=== PATIENT | female | born 1955 | race Caucasian/White ===

== ENCOUNTER 2023-11-20 12:08 | Outpatient (OUT) | payer MEDICARE, BC, SELFPAY ==
--- NOTE | 2023-11-20 12:54 | P.CN_ITS ---
Consult Note: HPI Data of Consult Patient: new to practice Consult date: 11/20/23 Requesting Physician: Megan Pappas MD Primary Care Provider: HELEN JEFFERY Consult Narrative Reason for consult: low back, bilateral lower extremity pain Narrative: 68yof who presents for evaluation. she has had 20+ years of low back and leg pain, now worsening over past several months. increasing weakness into bilateral lower extremities. underwent back surgery in 1998. no recent advanced imaging available for review. has completed physical therapy and chiropractic therapy >6 weeks in past 3 months, without lasting benefit. uses tylenol, does not like to take meds. denies adverse med side effects. cc:: CC: Megan Pappas MD Review of Systems ROS Status of ROS 10 or more systems reviewed and unremark able except as noted in history and below Exam Narrative Exam Narrative: Psych-alert and oriented x 3. Attentive and appropriate, constitutionally normal, displays normal mood and affect per situation. There are no obvious deficits in memory, reasoning, or intellect.? Skin-no obvious rashes, bruising, erythema noted to the patient's area of pain.? Extremities- extremities are warm with minimal edema and palpable pulses. Lumbar-tenderness to palpation noted in the lumbar spine and paraspinal musculature. Pain is elicited with flexion, extension, and lateral rotation of the lumbar spine. Range of motion is diminished with these motions. Facet loading maneuvers are positive.? Strength-noted to be unremarkable with the exception of decreased strength rated at 4 out of 5 in bilateral quadriceps femoris, anterior tibialis. Sensory-no notable sensory deficits in the bilateral lower extremities to touch or pinprick in all dermatomal distributions with the exception to decreased sensation to the bilateral L4, 5 dermatomal distribution Coordination remains intact.? Gait remains non-antalgic. Assessment and Plan Assessment and Plan (1) Lumbar stenosis with neurogenic claudication: (2) Lumbar postlaminectomy syndrome: Plan 68yof who presents for evaluation. failed conservative measures, as noted. given worsening symptoms and exam findings, prudent to obtain lumbar mri without contrast for further info. she is in agreement. meds reviewed, no changes. follow up after imaging.
== END 2023-11-20 12:09 | disposition home or self-care (01) ==
LOC: PM 12:10
PROVIDERS: PCP Internal Medicine; Visit Provider Anesthesiology
DX: M48.062 Spinal stenosis, lumbar region with neurogenic claudication (principal); M96.1 Postlaminectomy syndrome, not elsewhere classified
CPT/HCPCS: G0463

== ENCOUNTER 2023-11-21 09:18 | Outpatient (OUT) | payer MEDICARE, BC, SELFPAY ==
--- NOTE | 2023-11-21 09:21 | MR_ITS ---
[address] [address] Patient Name: AMARA AGUILAR MRN: [id number] date: 1955 Sex: F Assigned Patient Location: MRI Current Patient Location: MRI Accession/Order Number: [id number] Exam Date: 11/21/2023 09:39 Report Date: 11/21/2023 13:03 At the request of: CHELSIE LEMUS Procedure: MR lumbar spine wo con EXAMINATION: MR lumbar spine wo con HISTORY: Lumbar Stenosis COMPARISON: No relevant comparison available. TECHNIQUE: A variety of imaging planes and parameters were utilized for visualization of suspected pathology. FINDINGS: For the purposes of numbering, sagittal T2 image # 8 extends from the T11 vertebral body superiorly to the S3 level inferiorly. PARASPINAL AREA: Normal with no visible mass. BONES: Normal alignment with no acute fracture or spondylolisthesis. Mild degenerative spondylosis and facet osteophyte arthropathy. CORD/CAUDA EQUINA: Normal caliber, contour, and signal intensity. 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 L1-L2: No significant disc/facet abnormality, spinal stenosis, or foraminal stenosis. L2-L3: Disc space narrowing and desiccation. Mild posterior broad-based disc protrusion. No central canal or foraminal stenosis L3-L4: Disc space narrowing and disc desiccation. Mild posterior disc/osteophyte complex with ligamentum flavum hypertrophy and facet osteoarthropathy. Mild trefoil narrowing of the central canal. No foraminal stenosis. L4-L5: Moderate disc space narrowing and disc desiccation. Mild diffuse disc bulge with ligamentum flavum hypertrophy and facet osteoarthropathy. No central canal or foraminal stenosis L5-S1: Disc collapse with endplate sclerosis. Mild diffuse disc bulge with facet osteoarthropathy. No central or foraminal stenosis MR/MR lumbar spine wo con IMPRESSION: Degenerative changes without definitive central or foraminal stenosis Electronically authenticated by: MEGAN PEREZ Date: 11/21/2023 13:03
== END 2023-11-21 09:19 | disposition home or self-care (01) ==
LOC: MRI 09:18
PROVIDERS: PCP Internal Medicine; Visit Provider Anesthesiology
DX: M48.062 Spinal stenosis, lumbar region with neurogenic claudication (principal)
CPT/HCPCS: 72148

== ENCOUNTER 2023-11-23 12:19 | Outpatient (OUT) | payer BC, MEDICARE, SELFPAY ==
--- OUTSIDE RECORDS SUMMARY | 2023-11-23 12:37 | XMS_ITS | CCD ---
Author Organization [facility] Inform ion Partnership 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 Gladis Solorzano Primary Care U navailable Gladis Solorzano Admitting Unavailable Gladis Solorzano Attending Unavailable Quintero-Gladis Sofia Primary Care Unavailable Qu[place], Gladis Primary Care Unavailable CopRafaela murillo Admitting Unavailable Rafaela Lopez Attending Unavailable DO Gladis Solorzano Primary Care Provider DO Gladis Solorzano Attending Provider Gladis Solorzano DO Primary Care Provi mitchell CHELY JEFFERSON Attending Unavailable GLADIS SOLORZANO Primary Care Unava ilable GLADIS SOLORZANO Attending GLADIS Wade Referring GLADIS Wade Attending GLADIS Wade Referring Stanislav garcia Medications Current Medications Medication Drug Class(es) Dates Sig (Normalized) Sig (Original) [id number] 200 actuat albuterol 0.09 mg/actuat metered dose inhaler (8 sources) beta2-Adrenergic Agonist Start: 12-05-2022 Albuterol Sulfate Active 1 INH INHALATION Four times daily December 05, 2022 12:00am Start: 04-16-2021 take 1 puff(s) by in halation every four hours albuterol 90 mcg/actuation inhaler Inhale 1 puff every 4 hours if needed. 04/16/2021 Active Start: 04-16-2021 take 1 puff(s) by in halation every four hours as needed Albuterol Sulfate HFA 108 (90 Base) MCG/ACT Inhalation Aerosol Solution INHALE 1 PUFF EVERY 4 HOURS NEEDED. Quantity: 0 Refills: 0 Ordered: 16-Apr-2021 DO Start : 16-Apr-2021 Active ascorbic acid 500 mg oral capsule (1 source) Vitamin C take 1 capsule by mouth once daily ascorbic acid, vitamin C, 500 mg capsule Take 1 capsule by mouth once daily. Active atenolol 50 mg oral tablet (7 sources) beta-Adrenergic Kana Start: 08-10-2023 End: 08-09-2024 take 1 tablet by mouth once daily atenolol (Tenormin) 50 mg tablet Indications: Essential hypertension, benign Take 1 tablet (50 mg) by mouth once daily. 90 tablet 3 08/10/2023 08/09/2024 Active Start: 12-05-2022 take 50 mg by mouth once daily Atenolol Active 50 MG PO Daily December 05, 2022 12:00am Start: 03-01-2021 take 1 tablet by nyla th once daily Atenolol 50 MG Oral Tablet Take 1 tablet daily Quantity: 90 Refills: 3 Ordered: 14-Jul-2022 Chely Jefferson MD Start : 01-Mar-2021 Active citalopram 20 mg oral tablet (8 sources) Serotonin Reuptake Inhibitor Start: 04-16-2021 take 20 mg by mouth once daily Citalopram Active 20 MG PO Daily December 05, 2022 12:00am codeine phosphate 2 mg/ml / guaiFENesin 20 mg/ml oral solution (7 sources) Opioid Agonist Start: 12-28-2020 codeine-guaife nesi n (Robitussin-AC) 10-100 mg/5 mL syrup Take by mouth. 12/28/2020 Active Fluticasone-Umeclid in-Vilanter (8 sources) Anticholinergic, Corticosteroid, beta2-Adrenergic Agonist Start: 12-05-2022 Fluticasone-Umecli din-Vilanter (Trelegy Ellipta) 100-62.5-25 mcg blister with device Active 1 INH INHALATION Daily December 05, 2022 12:00am Start: 04-16-2021 take 1 puff(s) by inhalation once daily hamyybmdpkh-cvjwxhrmo-dgylneue (TRELEGY-ELLIPTA) 100-62.5-25 mcg blister with device Inhale 1 puff once daily. 04/16/2021 Active Start: 04-16-2021 Trelegy Ellipt a 100-62.5-25 MCG/INH AEPB Take as directed Quantity: 0 Refills: 0 Ordered: 16-Apr-2021 DO Start : 16-Apr-2021 Active hydroCHLOROthiazide 12.5 mg / lisinopril 10 mg oral tablet (7 sources) Thiazide Diuretic, Angiotensin Converting Enzyme Inhibitor Start: 08-10-2023 End: 08-09-2024 take 1 tablet by mouth once daily lisinopriL-hydrochlorothiazide 10-12.5 mg tablet Indications: Essential hypertension, benign Take 1 tablet by mouth once daily. 90 tablet 3 08/10/2023 08/09/2024 Active Start: 12-05-2022 take 1 tablet by nyla th once daily Lisinopril-Hydrochlorothiazide Active 1 TAB PO Daily December 05, 2022 12:00am Start: 03-01-2021 take 1 tablet by nyla th once daily Lisinopril-hydroCHLOROthiazide 10-12.5 M G Oral Tablet Take 1 tablet daily Quantity: 90 Refills: 3 Ordered: 14-Jul-2022 Chely Jefferson MD Start : 01-Mar-2021 Active Completed/Discontinued Medications Medication Drug Class(es) Dates Sig (Normalized) Sig (Original) cholecalciferol 0.025 mg oral tablet (8 sources) Vitamin D Start: 04-26-2021 End: 08-29-2023 take 1 tablet by mouth once daily cholecalciferol (Vitamin D-3) 25 MCG (1000 UT) tablet Take 1 tablet (1,000 Units) by mouth once daily. 04/26/2021 08/29/2023 Discontinued (Duplicate order) Start: 04-26-2021 Vitamin D-[address] 25 MCG (1000 UT) Oral Tablet take 5000 units daily Quantity: 90 Refills: 1 Ordered: 26-Apr-2021 Chely Jefferson MD Start : 26-Apr-2021 Active take 2 tablets by mo uth once daily cholecalciferol (Vitamin D-3) 25 MCG (1000 UT) tablet Take 2 tablets (50 mcg) by mouth once daily. Active Fish Oil CAPS (6 sources) Fish Oil CAPS Ta ke as directed Quantity: 0 Refills: 0 Ordered: 26-Apr-2021 DO Active Vitamin C CAPS (6 sources) Vitamin C CAPS T beth as directed Quantity: 0 Refills: 0 Ordered: 26-Apr-2021 DO Active Vitamin D3 TABS (6 sources) Vitamin D3 TABS TAKE DIRECTED. Quantity: 0 Refills: 0 Ordered: 26-Apr-2021 DO Active Problems Active Problems Problem Classification Problem Date Documented Da te Episodic/Chronic Cardiac dysrhythmias (9 sources) Palpitations; Translations: [Palpitations] Onset: 05-16-2023 05-16-2023 Episodic Chronic kidney disease (9 sources) Chronic kidney disease stage 3; Translations: [Chronic kidney disease, Stage III (moderate)] Onset: 04-05-2017 08-29-2023 Chronic Chronic kidney disease (7 sources) Chronic kidney disease; Translations: [Hypertensive chronic kidney disease w stg 1-4/unsp chr kdny] Onset: 04-05-2017 Chronic obstructive pulmonary disease and bronchiectasis (10 sources) Chronic obstructive lung disease; Translations: [Chronic airway obstruction, not elsewhere classified] Onset: 05-16-2023 08-29-2023 Chronic E Codes: Fall (1 source) Fall; Translations: [Unspecified fall, initial encounter] 12-19-2022 Episodic Essential hypertension (11 sources) Benign essential hypertension; Translations: [Benign essential hypertension] Onset: 05-16-2023 08-29-2023 Chronic Open wounds of extremities (1 source) Tear of skin; Translations: [Laceration without foreign body of left forearm, initial encounter] 12-19-2022 Episodic Other nutritional; endocrine; and metabolic disorders (2 sources) Obesity; Translations: [Obesity, unspecified] Chronic Other nutritional; endocrine; and metabolic disorders (6 sources) Overweight in adulthood with body mass index of 25 or more but less than 30; Translations: [Overweight] Onset: 08-29-2023 08-29-2023 Episodic Other nutritional; endocrine; and metabolic disorders (2 sources) Body mass index (BMI) 29.0-29.9, adult; Translations: [Body mass index (BMI) 29.0-29.9, adult] Onset: 08-29-2023 Episodic Screening and history of mental health and substance abuse codes (10 sources) Ex-smoker; Translations: [Personal history of tobacco use] Onset: 08-29-2023 08-29-2023 Episodic Comment on above: quit 2005; Unclassified (1 source) Encounter for screening mammogram for malignant neoplasm of breast; Translations: [Encounter for screening mammogram for malignant neoplasm of breast] Onset: 06-07-2023 Unclassified (1 source) Laceration without foreign body of left forearm, initial encounter; Translations: [Laceration without foreign body of left forearm, initial encounter] Onset: 12-19-2022 Past or Other Problems Problem Classification Problem Date Documented Da te Episodic/Chronic Other lower respiratory disease (6 sources) Difficulty breathing; Translations: [Other respiratory abnormalities] Resolved: 04-26-2021 Episodic Other screening for suspected conditions (not mental disorders or infectious disease) (8 sources) Decreased vitamin D; Translations: [Other abnormal blood chemistry] Onset: 07-21-2021 05-16-2023 Episodic Unclassified (1 source) Onset: 08-29-2023 08-29-2023 Results Test Name Value Interpretation Reference Range Facil ity MM screening mammo BI w/CADo n 06-07-2023 MM screening mammo BI w/CAD [facility] [place] [address] Mammography Report Signed Patient: Breanna Aguilar MR#: [id number] 75 : 1955 Acct:[id number] Age/Sex: 67 / F ADM Date: 06/07/23 Loc: [place] Room: Type: [facility] Attending Dr: Gladis Solorzano DO Copies to: Gladis Solorzano DO Ordering Provider: Gladis Solorzano DO Date of Service: 06/07/23 MM/MM screening mammo BI w/CAD: SCREENING CLINICAL DATA: Screening for malignancy. SCREENING MAMMOGRAM - FULL FIELD DIGITAL WITH TOMOSYNTHESIS AND CAD COMPARISON:Mammograms dating back to 2019 Tomosynthesis craniocaudal and mediolateral oblique views of both breasts were obtained using low- dose digital technique. This examination was reviewed with the aid of CAD. FINDINGS: The breast tissue is composed of scattered fibroglandular densities. There are no dominant masses, typically malignant calcifications or architectural distortion. There has been no significant interval change. MM/MM screening mammo BI w/CAD IMPRESSION: NO MAMMOGRAPHIC EVIDENCE OF MALIGNANCY. ROUTINE FOLLOW-UP IS RECOMMENDED IN ONE YEAR. RESULT CODE: 1 Negative DENSITY CODE: 2 (approximately 25-50% glandular) FOLLOW UP: 1YR The false-negative rate of mammography is approximately 10-percent. Management of a palpable abnormality must be based on clinical grounds. Patient was entered into a reminder system with a target due date for the next mammogram. Impression dictated by: Kyle Miranda Jr., D.OAngel06/07/2023 11:48 AM Dictation Location: [facility] Transcribed By: [facility] 06/07/23 1148 Dictated By: Kyle Miranda Jr, DO 06/07/23 1147 Signed By: 06/07/23 1148 [facility] Office Visit (Cardiology)on 08-24-2022 Follow-up visit Diagnoses/Problems Assessed Essential hypertension, benign (401.1) (I10) Chronic kidney disease, stage 3 (585.3) (N18.30) COPD (chronic obstructive pulmonary disease) (496) (J44.9) Class 1 obesity with body mass index (BMI) of 30.0 to 30.9 in adult (278.00,V85.30) (E66.9,Z68.30) Former smoker (V15.82) (Z87.891) quit 2005 Orders Class 1 obesity with body mass index (BMI) of 30.0 to 30.9 in adult Healthy Weight Tips; Status:Complete - Retrospective Authorization; Done: 24Aug2022 Some eating tips that can help you lose weight.; Status:Complete - Retrospective Authorization; Done: 24Aug2022 SocHx: Former smoker Tobacco Use Screening; Status:Complete; Done: 24Aug2022 Patient Instructions Please bring all medicines, vitamins, and herbal supplements with you when you come to the office. Prescriptions will not be filled unless you are compliant with your follow up appointments or have a follow up appointment scheduled as per instruction of your physician. Refills should be requested at the time of your visit. Follow up in 1 year. Same meds Declined pneumo vac. Chief Complaint BREANNA AGUILAR is being seen for an annual follow-up of. Patient is in the office for annual follow-up for the problems noted below. Since her last visit she gained 11 pounds due to inactivity. She does have COPD from previous tobacco abuse and that examination today demonstrated significantly diminished breath sounds. She has no cough no lower extremity edema no chest pain. She feels tired due to inactivity. Since she started taking vitamin D3 5000 unit daily her vitamin D level went up to the mid 50s. She saw her PCP couple months ago and she sees her twice yearly. Lab data from recent testing were sent to me, I reviewed and discussed with the patient. She continues to have stage IIIa chronic kidney disease. Her pressures in the upper normal range but she is on medical therapy as noted that generally speaking has been effective. ASSESSMENT AND PLAN: 1. Hypertension, under control, currently on lisinopril/hydrochlor othiazide and atenolol, with no changes necessary. 2. Stage III chronic kidney disease, nonprogressive. 3. Obesity. Encouraged the patient to drop her weight further with diet and exercise. Daily exercise and reduce calorie consumption was advocated. 4. Previous stress test and echocardiogram 2006 were normal there is no reason to repeat these tests at the present time 5. COPD due to previous tobacco abuse. Currently asymptomatic She will follow up with me in the office on annual basis. Chely Jefferson MD, [facility] Surgical History Problems History of Back surgery History of Cataract surgery History of section History of Complete colonoscopy History of Tooth extraction History of Tubal ligation Past Medical History Problems History of Difficulty breathing (786.09) (R06.89) Resolved Date: 26 Apr 2021 Current Meds Medication NameInstruction Albuterol Sulfate HFA 108 (90 Base) MCG/ACT Inhalation Aerosol SolutionINHALE 1 PUFF EVERY 4 HOURS NEEDED. Atenolol 50 MG Oral TabletTake 1 tablet daily Citalopram Hydrobromide 20 MG Oral TabletTAKE 1 TABLET DAILY DIRECTED. Fish Oil CAPSTake as directed guaiFENesin-Codeine 100-10 MG/5ML Oral SolutionTake as directed Lisinopril-hydroCHLOR Othiazide 10-12.5 MG Oral TabletTake 1 tablet daily Trelegy Ellipta 100-62.5-25 MCG/INH AEPBTake as directed Vitamin C CAPSTake as directed Vitamin D-[address] 25 MCG (1000 UT) Oral Tablettake 5000 units daily Vitamin D3 TABSTAKE DIRECTED. Patient did not bring medication list or bottles. Updated verbally with patient Allergies Medication No Known Drug Allergies Recorded By: Chelita Del Rio; 03/02/2021 9:19:19 AM Social History Problems Alcohol use (V49.89) (Z78.9) Caffeine use (V49.89) (Z78.9) 4 cups of coffee daily. Former smoker (V15.82) (Z87.891) quit 2005 No illicit drug use Review of Systems Constitutional: not feeling tired. Cardiovascular: palpitations, but no intermittent leg claudication and as noted in HPI. Respiratory: shortness of breath, but no cough. Gastrointestinal: no change in bowel habits and no blood in stools. Integumentary: no skin rashes. Neurological: no seizures and no frequent falls. All other systems have been reviewed and are negative for complaint. Vitals Vital Signs Recorded: [id number] 08:39AMRecorded: [id number] 08:28AM [id number], LUE, Sitting [id number], LUE, Sitting Heart Rate60, L Radial Height5 ft 6 in Udmzqy267 lb BMI Cbkzrgeqry10.34 kg/m2 BSA Calculated1.95 Tobacco Useb) No PHQ-2 #1. Over the last 2 weeks have you felt down, depressed or hopeless? (If yes, answer PHQ-9 below)No PHQ-2 #2. Over the last 2 weeks have you felt little interest or pleasure in doing things? (If yes, answer PHQ-9 below)No Falls Screening (Age 18+)a) No falls within the last year Physical Exam Constitutional: alert and in no acute dis (more content not included)... Normal [employer] Tobacco Screening.on 023 Adult depression screening assessment No [facility] [employer] DO Work Phone: Fall risk assessment a) No falls within the last year [facility] [employer] DO Work Phone: Tobacco use status [facility] b) No [facility] [employer] DO Work Phone: VITAMIN D 25 OHon 07-16-2021 VIT D 25-OH 50.6 ng/mL Normal [facility] Comment on above: Performed By: #### V ITAD #### [facility] [address] [place] [address] Dr. Oralia Valdes VIT D RANGES SEE BELOW Normal [facility] Comment on above: Result Comment: <20 ng/mL Vit D deficient 20 - <30 ng/mL Vit D insufficient 30 - 100 ng/mL Vit D sufficient >100 ng/mL Potential Toxicity Performed By: #### V ITAD #### [facility] [address] [place] [address] Dr. Oralia Valdes Tobacco Screening.on 022 Fall risk assessment a) No falls within the last year [facility] [employer] DO Work Phone: Tobacco use status [facility] b) No [facility] [employer] DO Work Phone: Complete Blood Counton 04-06 Erythrocyte distribution width (RBC) [Ratio] 13.0 % Normal 11.0-15.0 [facility] [employer] License Inspector Comment on above: Performed By: #### L IPD, VITD, TSH reflex FT4, CBC, CMP #### [facility] [address] [place], [place] [id number] Hematocrit (Bld) [Volume fraction] 37.8 % Normal 35.0-47.0 [facility] [employer] License Inspector Comment on above: Performed By: #### L IPD, VITD, TSH reflex FT4, CBC, CMP #### [facility] [address], [place] [id number] Hemoglobin (Bld) [Mass/Vol] 12.2 g/dL Normal 11.6-15.5 [facility] Specialist Comment on above: Performed By: #### L IPD, VITD, TSH reflex FT4, CBC, CMP #### [facility] [address], [place] [id number] MCH (RBC) [Entitic mass] 31.1 pg Normal 27.0-33.0 [facility] Specialist Comment on above: Performed By: #### L IPD, VITD, TSH reflex FT4, CBC, CMP #### [facility] [address], [place] [id number] MCHC (RBC) [Mass/Vol] 32.3 g/dL Normal 32.0-36.0 [facility] Specialist Comment on above: Performed By: #### L IPD, VITD, TSH reflex FT4, CBC, CMP #### [facility] [address], [place] [id number] MCV (RBC) [Entitic vol] 96 fL Normal 80-100 [facility] Chief Dog License Inspector Comment on above: Performed By: #### L IPD, VITD, TSH reflex FT4, CBC, CMP #### [facility] [address], [place] [id number] Platelet mean volume (Bld) [Entitic vol] 10.20 fL Normal 7.50-12.50 [facility] Chief Dog License Inspector Comment on above: Performed By: #### L IPD, VITD, TSH reflex FT4, CBC, CMP #### [facility] [address], [place] [id number] Platelets (Bld) [#/Vol] 260 10*3/uL Normal 140-400 [facility] Chief Dog License Inspector Comment on above: Performed By: #### L IPD, VITD, TSH reflex FT4, CBC, CMP #### [facility] [address], [place] [id number] RBC (Bld) [#/Vol] 3.92 10*6/uL Normal 3.90-5.20 [facility] Specialist Comment on above: Performed By: #### L IPD, VITD, TSH reflex FT4, CBC, CMP #### [facility] [address], [place] [id number] RDW-SD 45.7 fL Normal 37.0-50.0 [facility] Chief Dog License Inspector Comment on above: Performed By: #### L IPD, VITD, TSH reflex FT4, CBC, CMP #### [facility] [address], [place] [id number] WBC (Bld) [#/Vol] 7.3 10*3/uL Normal 3.8-11.0 [facility] [place] Chief Dog License Inspector Comment on above: Performed By: #### L IPD, VITD, TSH reflex FT4, CBC, CMP #### [facility] [address], [place] [id number] Comprehensive Metabolic Pane [facility] 04-06-2021 Albumin [Mass/Vol] 4.3 g/dL Normal 3.6-5.1 [facility] [place] Chief Dog License Inspector Comment on above: Performed By: #### L IPD, VITD, TSH reflex FT4, CBC, CMP #### [facility] [address], [place] [id number] Albumin/Globulin [Mass ratio] 1.4 {ratio} Normal 1.0-2.5 [facility] Chief Dog License Inspector Comment on above: Performed By: #### L IPD, VITD, TSH reflex FT4, CBC, CMP #### [facility] [address], [place] [id number] ALP [Catalytic activity/Vol] 72 U/L Normal 35-119 [facility] Chief Dog License Inspector Comment on above: Performed By: #### L IPD, VITD, TSH reflex FT4, CBC, CMP #### [facility] [address], [place] [id number] ALT [Catalytic activity/Vol] 16 U/L Normal 6-33 [facility] Chief Dog License Inspector Comment on above: Result Comment: 02/24 Female reference range changed. Performed By: #### L IPD, VITD, TSH reflex FT4, CBC, CMP #### [facility] [address], [place] [id number] Anion gap [Moles/Vol] 17 mmol/L Normal 12-20 [facility] Chief Dog License Inspector Comment on above: Result Comment: [place] ctive 04/01/2019 reference range changed. Performed By: #### L IPD, VITD, TSH reflex FT4, CBC, CMP #### [facility] [address], [place] [id number] AST [Catalytic activity/Vol] 20 U/L Normal 9-34 [facility] Specialist Comment on above: Performed By: #### L IPD, VITD, TSH reflex FT4, CBC, CMP #### [facility] [address], [place] [id number] Bilirubin [Mass/Vol] 0.33 mg/dL Normal 0.30-1.20 [facility] Specialist Comment on above: Performed By: #### L IPD, VITD, TSH reflex FT4, CBC, CMP #### [facility] [address], [place] [id number] BUN/CREA 17 Ratio Normal 6-22 [facility] Specialist Comment on above: Performed By: #### L IPD, VITD, TSH reflex FT4, CBC, CMP #### [facility] [address], [place] [id number] Calcium [Mass/Vol] 9.3 mg/dL Normal 8.6-10.2 [facility] Comment on above: Performed By: #### L IPD, VITD, TSH reflex FT4, CBC, CMP #### [facility] [address], [place] [id number] Chloride [Moles/Vol] 104 mmol/L Normal 98-107 [facility] Specialist Comment on above: Performed By: #### L IPD, VITD, TSH reflex FT4, CBC, CMP #### [facility] [address], [place] [id number] CO2 [Moles/Vol] 24 mmol/L Normal 20-31 [facility] Specialist Comment on above: Performed By: #### L IPD, VITD, TSH reflex FT4, CBC, CMP #### [facility] [address], [place] [id number] Creatinine [Mass/Vol] 1.1 mg/dL Normal 0.6-1.4 [facility] Specialist Comment on above: Performed By: #### L IPD, VITD, TSH reflex FT4, CBC, CMP #### [facility] [address], [place] [id number] eGFRAA 60 mL/min/1.73m2 Low >60 [facility] Chief Dog License Inspector Comment on above: Performed By: #### L IPD, VITD, TSH reflex FT4, CBC, CMP #### [facility] [address], [place] [id number] eGFRNAA 50 mL/min/1.73m2 Low >60 [facility] Chief Dog License Inspector Comment on above: Performed By: #### L IPD, VITD, TSH reflex FT4, CBC, CMP #### [facility] [address], [place] [id number] Globulin (S) [Mass/Vol] 3.0 g/dL Normal 1.9-3.7 [facility] Chief Dog License Inspector Comment on above: Performed By: #### L IPD, VITD, TSH reflex FT4, CBC, CMP #### [facility] [address], [place] [id number] Glucose [Mass/Vol] 94 mg/dL Normal 65-99 [facility] Chief Dog License Inspector Comment on above: Result Comment: For FASTING Glucose --- ADA reference ranges: Normal 65-99 mg/dl Prediabetes 100-125 Diabetes >/= 126 Performed By: #### L IPD, VITD, TSH reflex FT4, CBC, CMP #### [facility] [address], [place] [id number] Potassium [Moles/Vol] 4.5 mmol/L Normal 3.5-5.5 [facility] Chief Dog License Inspector Comment on above: Performed By: #### L IPD, VITD, TSH reflex FT4, CBC, CMP #### [facility] [address], [place] [id number] Protein [Mass/Vol] 7.3 g/dL Normal 6.1-8.1 [facility] [place] Chief Dog License Inspector Comment on above: Performed By: #### L IPD, VITD, TSH reflex FT4, CBC, CMP #### [facility] [address], [place] [id number] Sodium [Moles/Vol] 140 mmol/L Normal 135-146 [facility] ty [place] Chief Dog License Inspector Comment on above: Performed By: #### L IPD, VITD, TSH reflex FT4, CBC, CMP #### [facility] [address], [place] [id number] Urea nitrogen [Mass/Vol] 18 mg/dL Normal 7-25 [facility] Specialist Comment on above: Performed By: #### L IPD, VITD, TSH reflex FT4, CBC, CMP #### [facility] [address], [place] [id number] Lipid Panelon 04-06-2021 Cholesterol [Mass/Vol] 236 mg/dL High 125-200 [facility] Chief Dog License Inspector Comment on above: Order Comment: FASTI NG-But DO drink water prior to going to the lab Result Comment: Low risk < 200mg/dL Borderline risk 201-239 mg/dl High risk > or equal to 240 Performed By: #### L IPD, VITD, TSH reflex FT4, CBC, CMP #### [facility] [address], [place] [id number] Cholesterol in HDL [Mass/Vol] 71 mg/dL Normal >40 [facility] Chief Dog License Inspector Comment on above: Order Comment: FASTI NG-But DO drink water prior to going to the lab Result Comment: High Cardiovascular Risk HDL <40 mg/dL Low Cardiovascular Risk HDL > or equal to 60 mg/dl Performed By: #### L IPD, VITD, TSH reflex FT4, CBC, CMP #### [facility] [address], [place] [id number] Cholesterol in LDL [Mass/Vol] 140 mg/dL Normal [facility] Specialist Comment on above: Order Comment: FASTI NG-But DO drink water prior to going to the lab Result Comment: LDL ATP III CLASSIFICATION LDL less than 100 mg/dl Optimal LDL 100-129 mg/dl Near or above optimal LDL 130-159 Borderline high LDL 160-189 High LDL greater than 189 mg/dl Very High Performed By: #### L IPD, VITD, TSH reflex FT4, CBC, CMP #### [facility] [address], [place] [id number] Cholesterol in VLDL [Mass/Vol] 25 mg/dL Normal [facility] Specialist Comment on above: Order Comment: FASTI NG-But DO drink water prior to going to the lab Performed By: #### L IPD, VITD, TSH reflex FT4, CBC, CMP #### [facility] [address], [place] [id number] Cholesterol.total/C holesterol in HDL [Mass ratio] 3 {ratio} Normal [facility] Comment on above: Order Comment: FASTI NG-But DO drink water prior to going to the lab Performed By: #### L IPD, VITD, TSH reflex FT4, CBC, CMP #### [facility] [address], [place] [id number] Triglyceride [Mass/Vol] 123 mg/dL Normal 30-150 [facility] Specialist Comment on above: Order Comment: FASTI NG-But DO drink water prior to going to the lab Result Comment: TRIG ATPIII CLASSIFICATIONS TRIG less than 150 mg/dl Normal TRIG 150-199 mg/dl Borderline High TRIG 200-500 mg/dl High TRIG greather than 500 mg/dl Very High Performed By: #### L IPD, VITD, TSH reflex FT4, CBC, CMP #### [facility] [address], [place] [id number] Microalbumin (with Creat)on 04-06-2021 mALB 8.3 mg/dL Normal [facility] Comment on above: Result Comment: mALB reference range not established. Performed By: #### m ALBC #### [facility] [address], [place] [id number] mALB/Creat Ratio 107.8 MCG/MG Normal [facility] Comment on above: Result Comment: The ADA (Diabetes Care 26:S94-S98, 2003) defines abnormalities in Albumin excretion as follows: Category Result (MCG/MG Creatinine) Normal <30 Microalbuminuria 30-299 Clinical Albuminuria > or = 300 Performed By: #### m ALBC #### [facility] [address], [place] [id number] UCREA 77 mg/dL Normal 28-217 [facility] Specialist Comment on above: Performed By: #### m ALBC #### [facility] [address], [place] [id number] TSH w/ Reflex to Free T4on 0 04-06-2021 TSH 1.750 uIU/mL Normal 0.400-4.500 [facility] Chief Dog License Inspector Comment on above: Performed By: #### L IPD, VITD, TSH reflex FT4, CBC, CMP #### [facility] [address], [place] [id number] Vitamin B12on 04-06-2021 Cobalamin (Vitamin B12) [Mass/Vol] 811 pg/mL Normal 211-946 [facility] Chief Dog License Inspector Comment on above: Performed By: #### B 12 #### [facility] [address], [place] [id number] Vitamin D 25-OHon 04-06-2021 VIT D 25 OH 26 ng/ml Low >29 [facility] Chief Dog License Inspector Comment on above: Result Comment: Amada min D Status Deficiency <20 ng/mL Insufficiency 20-29 ng/mL Optimal 30-100 ng/mL Possible Toxicity >=150 ng/mL Performed By: #### L IPD, VITD, TSH reflex FT4, CBC, CMP #### [facility] [address], [place] [id number] Outside Records Officeon Outside Records Office [id number]# 1.00CD:127 Normal [facility] Referrals Officeon Referrals Office [id number]# 1.00CD:127 Normal [facility] Creatinineon 04-05-2017 Creatinine 1.27 mg/dL High 0.50-1.05 [facility] Comment on above: Performed By: #### 1 [id number] ####[facility] [address] [place] [address] eGFR (MDRD) 43 mL/min/{1.73_m2} Normal [facility] Comment on above: Result Comment: Inte rpretation for Chronic Kidney Disease:Stages 1&2 >60 Healthy or potential kidney damage.Mild decrease of GFR.Stage 3 30-59 Moderate decrease of GFR.Stage 4 15-29 Severe decrease of GFR.Stage 5 <15 Kidney failure or on dialysis. Performed By: #### 1 [id number] ####[facility] [address] [place] [address] Electrolyte Panelon 01-10-20 18 Anion gap 11 mmol/L Normal 10-20 [facility] Healthcare Comment on above: Performed By: #### 1 [id number] ####[facility] [address] [place] [address] Bicarbonate (HCO3) 30 mmol/L Normal 21-32 [facility] He althcare Comment on above: Performed By: #### 1 [id number] ####[facility] [address] [place] [address] Chloride 101 mmol/L Normal 98-107 [facility] Healthcare Comment on above: Performed By: #### 1 [id number] ####[facility] [address] [place] [address] Potassium molar conc 4.4 mmol/L Normal 3.5-5.1 [facility] Comment on above: Performed By: #### 1 [id number] ####[facility] [address] [facility] [address] Sodium 138 mmol/L Normal 136-145 [facility] Comment on above: Performed By: #### 1 [id number] ####[facility] [address] [place] [address] Urea Nitrogenon 04-05-2017 Urea nitrogen 20 mg/dL Normal 6-23 [facility] are Comment on above: Performed By: #### 1 [id number] ####[facility] [address] [facility] [address] Vital Signs Date Time Vital Sign Value Performing Clinician Keshiai joel 08-29-2023 12:55-0400 Body height 167.6 cm Chely Jefferson MD Work Phone: [facility] 08-29-2023 12:55-0400 Body mass index (BMI) [Ratio] 29.86 kg/m2 Chely Jefferson MD Work Phone: [facility] 08-29-2023 12:55-040 Body weight 83.92 kg Chely Jefferson MD Work Phone: [facility] 08-29-2023 12:55-0400 Diastolic blood pressure 68 mm[Hg] Chely Jefferson MD Work Phone: [facility] 08-29-2023 12:55-0400 Heart rate 56 /min Chely Jefferson MD Work Phone: [facility] 08-29-2023 12:55-0400 Systolic blood pressure 118 mm[Hg] Chely Jefferson MD Work Phone: [facility] 08-24-2022 08:39-0400 Diastolic blood pressure 80 mm[Hg] Gladis Lerma Quintero-[place] Work Phone: [facility] [address] DO Work Phone: 08-24-2022 08:39-0400 Systolic blood pressure 136 mm[Hg] Gladis Florentin [place] Work Phone: [facility] [address] DO Work Phone: 08-24-2022 08:28-0400 Body height 167.64 cm Gladis Florentin [place] Work Phone: [facility] [address] DO Work Phone: 08-24-2022 08:28-0400 Body mass index (BMI) [Ratio] 30.34 kg/m2 Gladis Florentin [place] Work Phone: [facility] [address] DO Work Phone: 08-24-2022 08:28-0400 Body surface area Derived from formula 1.95 m2 Gladis Florentin [place] Work Phone: [facility] [address] DO Work Phone: 08-24-2022 08:28-0400 Body weight 85.28 kg Gladis Florentin [place] Work Phone: [facility] [address] DO Work Phone: 08-24-2022 08:28-0400 Diastolic blood pressure 78 mm[Hg] Gladis Lerma [place] Work Phone: [facility] [address] DO Work Phone: 08-24-2022 08:28-0400 Heart rate 60 /min Gladis Florentin [place] Work Phone: [facility] [address] DO Work Phone: 08-24-2022 08:28-0400 Systolic blood pressure 146 mm[Hg] Gladis Florentin [place] Work Phone: [facility] [address] DO Work Phone: 04-26-2021 14:04-0500 Body height 167.64 cm Gladis Florentin [place] Work Phone: [facility] [address] DO Work Phone: 04-26-2021 14:04-0500 Body mass index (BMI) [Ratio] 28.65 kg/m2 Gladis Florentin [place] Work Phone: [facility] [address] DO Work Phone: 04-26-2021 14:04-0500 Body surface area Derived from formula 1.9 m2 Gladis D Qu[place] Work Phone: [facility] [address] DO Work Phone: 04-26-2021 14:04-0500 Body weight 80.51 kg Gladis Florentin [place] Work Phone: [facility] [address] DO Work Phone: 04-26-2021 14:04-0500 Diastolic blood pressure 63 mm[Hg] Gladis Florentin [place] Work Phone: [facility] [address] DO Work Phone: 04-26-2021 14:04-0500 Heart rate 66 /min Gladis Florentin [place] Work Phone: [facility] [address] DO Work Phone: 04-26-2021 14:04-0500 Systolic blood pressure 117 mm[Hg] Gladis D Quintero[place] Work Phone: [facility] [address] DO Work Phone: Encounters Encounter Date Encounter Type Care Provider Facility Start: 11-07-2023 End: 11-07-2023 ambulatory GLADIS D QUINTERO-EMERY Not Available Start: 08-29-2023 End: 08-29-2023 Office outpatient visit 25 minutes Chely Jefferson MD Work Phone: [facility] Comment on above: Essential hypertensi on, benign; Stage 3 chronic kidney disease, unspecified whether stage 3a or 3b CKD (Multi); Chronic obstructive pulmonary disease, unspecified COPD type ([facility]); BMI 29.0-29.9,adult; Former smoker Start: 08-29-2023 End: 08-29-2023 ambulatory CHELY Carcamo [facility] Ambulatory Start: 06-07-2023 End: 06-07-2023 ambulatory Gladis Quintero[place] Facility:[facility] Start: 06-07-2023 End: 06-07-2023 ambulatory DO Gladis Quintero[place] Work Phone: [facility] Work Phone: Start: 06-07-2023 End: 06-07-2023 Patient encounter procedure DO Gladis Quintero[place] Work Phone: [facility] Work Phone: Start: 05-09-2023 End: 05-09-2023 ambulatory GLADIS D QUINTERO-EMERY Not Available Start: 12-19-2022 End: 12-20-2022 ambulatory Gladis Quintero[place] Facility:[facility] Start: 08-24-2022 Office outpatient vi sit 25 minutes Gladis D Quintero[place] Work Phone: [facility] [address] DO Work Phone: Start: 08-24-2022 ambulatory Chely Jefferson Facility : Start: 07-14-2022 Rx Renewal Gladis D Weave r-[place] Work Phone: [facility] [address] DO Work Phone: Start: 05-23-2022 End: 05-23-2022 ambulatory DO Gladis Quintero[place] Work Phone: [facility] Work Phone: Start: 05-23-2022 End: 05-23-2022 Patient encounter procedure DO Gladis Quintero[place] Work Phone: [facility] Work Phone: Start: 04-14-2022 Rx Renewal Gladis D We[place] Work Phone: [facility] [address] DO Work Phone: Start: 12-22-2021 End: 12-22-2021 ambulatory DO Gladis Quintero[place] Work Phone: [facility] Work Phone: Start: 12-22-2021 End: 12-22-2021 Patient encounter procedure DO Gladis Quintero[place] Work Phone: [facility] Start: 07-21-2021 Encounter for genera l adult medical examination without abnormal findings DR CHELY JEFFERSON [facility] Start: 07-16-2021 End: 07-17-[address] CHELY JEFFERSON Facility:[facility] Start: 07-16-2021 End: 07-17-2021 Encounter for general adult medical examination without abnormal findings DR CHELY JEFFERSON Facility:[facility] Start: 04-26-2021 Office outpatient vi sit 25 minutes Gladis D Quintero[place] Work Phone: [facility] [address] DO Work Phone: Start: 03-01-2021 Rx Renewal Chely Jefferson MD Work Phone: [facility] [address] DO Work Phone: Start: 04-05-2017 Ambulatory CHELY JEFFERSON Facility :[id number] Procedures Date Procedure Procedure Detail Performing Clinician Start: 06-07-2023 End: 06-07-2023 Screening mammography of bilateral breasts DO Gladis Quintero[place] Work Phone: Start: 05-23-2022 Screening mammograph y of bilateral breasts DO Gladis Quintero[place] Work Phone: Start: 12-22-2021 Radionuclide three-p hase bone study DO Gladis Quintero[place] Work Phone: Cataract surgery Gladis D We aver[place] Work Phone: section Gladis D We [place] Work Phone: Ligation of fallopian tube S kylie D Quintero[place] Work Phone: Procedure on back Gladis D W e[place] Work Phone: Tooth extraction Gladis D We aver[place] Work Phone: Total colonoscopy Gladis D W [place] Work Phone: Plan of Treatment Date Care Activity Detail Author Start: 08-27-2024 End: 08-27-2024 Patient encounter procedure 08/27/2024 10:00 AM EDT Office Visit [facility] [address] [place] [address] Chely Jefferson MD [address] [place] [address] [facility] Start: 06-06-2024 Screening for malignant neoplasm of breast Mammogram [facility] Start: 11-26-2023 Influenza vaccination Influenza Vaccine (Season Ended) [facility] Start: 08-29-2023 FUV, Provider: Chely Jefferson, Status: Pen, Time: 8:30 AM FUV, Provider: Chely Jefferson, Status: Pen, Time: 8:[address] [facility] [address] DO Work Phone: Start: 12-01-2022 DTaP/Tdap/Td Vaccines (1 - Tdap) DTaP/Tdap/Td Vaccines (1 - Tdap) [facility] Start: 11-25-2022 COVID-19 Vaccine ( season) COVID-19 Vaccine ( season) [facility] Start: 08-24-2022 FUV, Provider: Chely Jefferson, Status: Pen, Time: 8:30 AM FUV, Provider: Chely Jefferson, Status: Pen, Time: 8:[address] [facility] 600 DO Work Phone: Start: 04-27-2022 FUV, Provider: Chely Jefferson, Status: Pen, Time: 8:30 AM FUV, Provider: Chely Jefferson, Status: Pen, Time: 8:[address] [facility] DO Work Phone: Start: 03-31-2021 FUV, Provider: Chely Jefferson, Status: Pen, Time: 8:30 AM FUV, Provider: Chely Jefferson, Status: Pen, Time: 8:[address] [facility] DO Work Phone: Start: 2015 RSV patients and/or patients aged 60+ years (1 - 1-dose 60+ series) RSV patients and/or patients aged 60+ years (1 - 1-dose 60+ series) [facility] Start: 09-02-2005 Zoster Vaccines (1 of 2) Zoster Vaccines (1 of 2) [facility] Start: 09-02-1973 Diabetes mellitus screening Diabetes Screening [facility] Start: 09-02-1973 Hepatitis C screening Hepatitis C Screening [facility] Start: 09-02-1961 Pneumococcal Vaccine: 65+ Years (1 of 2 - PCV) Pneumococcal Vaccine: 65+ Years (1 of 2 - PCV) [facility] Start: 1955 Lipid panel Lipid Panel [facility] Start: 1955 Screening for malignant neoplasm of colon [facility] Start: 1955 Screening for osteoporosis Bone Density Scan [facility] Start: 1955 Yearly Adult Physical Yearly Adult Physical [facility] Payers Date Payer Category Payer Unknown 2023 Unknown [id number] 2023 Medicare MEDICARE MEDICAR E PART A AND B [id number] 2023-Present [address] [place] [address] [id number] 2023 Medicare [id number] 2022 Self-pay [id number] 2021 Unknown [id number] 1959 Unknown [id number] 1955 Unknown [id number] 1955 Unknown [id number] 1955 Unknown [id number] 1955 Unknown [id number] 1955 Unknown [id number] Private Health Insurance [facility] [id number] Unknown [id number] Unknown [id number] Unknown [id number] Social History Date Type Detail Facility Start: 08-29-2023 Alcohol use Alcohol use [facility] [address] DO Work Phone: Comment on above: 4 cups of coffee bianca ly.; quit 2005; Start: 1955 Sex Assigned At Female F [facility] Start: 12-19-2022 End: 05-16-2023 Tobacco smoking status NHIS Ex-smoker (finding) [facility] History of tobacco use Current smoker [facility] Work Phone: History of tobacco use Cigarette Smoker [facility] Work Phone: Start: 08-29-2023 Alcoholic beverage intake Current drinker of alcohol (finding) [facility] Work Phone: Start: 08-29-2023 Tobacco use panel [facility] Work Phone: Start: 08-29-2023 Alcohol Comment rarely [facility] Work Phone: Start: 1955 Sex assigned at Not on file [facility] Work Phone: Start: 08-19-2023 End: 08-29-2023 Exposure to SARS-CoV-2 (event) Not sure [facility] History of Present illness Narrative 08-29-2023 Chely Jefferson MD - 08/29/2023 1:00 PM EDT Note Date & Type Note Facility 08-29-2023 History of Present illness Narrative Subjective Breanna Aguilar is a 67 y.o. female Chief Complaint Annual Exam HPI Patient is in the office for follow-up for the problems noted below. Since her last visit a year ago she has had no cardiac events. She has COPD from previous tobacco use which has been under control and uses inhalers on as-needed basis. Does not seem to interfere with her daily living. Her pressure is under control. She sees her PCP Dr. Quintero twice yearly. Her last blood work in March 2023 was reviewed and shared with her and there was no concern noted. She has diminished breath sounds in her lung examinations and has overweight otherwise physical examination was unremarkable. ASSESSMENT AND PLAN: 1. Essential hypertension, under control, currently on lisinopril/hydrochlorothiazide and atenolol, with no changes necessary. 2. Stage III chronic kidney disease, nonprogressive. 3. Overweight . Encouraged the patient to drop her weight further with diet and exercise. Daily exercise and reduce calorie consumption was advocated. 4. Previous stress test and echocardiogram 2006 were normal there is no reason to repeat these tests at the present time 5. COPD due to previous tobacco abuse. Currently asymptomatic She will follow up with me in the office on annual basis. Chely Jefferson MD, [facility] Review of Systems Cardiovascular: Positive for palpitations. All other systems reviewed and are negative. Vitals: 08/29/23 1255 BP: 118/68 BP Location: Left arm Patient Position: Sitting Pulse: 56 Weight: 83.9 kg (185 lb) Height: 1.676 m (5' 6 ) Objective Physical Exam Constitutional: Appearance: Normal appearance. HENT: Nose: Nose normal. Neck: Vascular: No carotid bruit. Cardiovascular: Rate and Rhythm: Normal rate. Pulses: Normal pulses. Heart sounds: Normal heart sounds. Pulmonary: Effort: Pulmonary effort is normal. Comments: Diminished breath sounds Abdominal: General: Bowel sounds are normal. Palpations: Abdomen is soft. Musculoskeletal: General: Normal range of motion. Cervical back: Normal range of motion. Right lower leg: No edema. Left lower leg: No edema. Skin: General: Skin is warm and dry. Neurological: General: No focal deficit present. Mental Status: She is alert. Psychiatric: Mood and Affect: Mood normal. Behavior: Behavior normal. Thought Content: Thought content normal. Judgment: Judgment normal. Allergies Patient has no known allergies. Current Medications Current Outpatient Medications: albuterol 90 mcg/actuation inhaler, Inhale 1 puff every 4 hours if needed., Disp: , Rfl: ascorbic acid, vitamin C, 500 mg capsule, Take 1 capsule by mouth once daily., Disp: , Rfl: atenolol (Tenormin) 50 mg tablet, Take 1 tablet (50 mg) by mouth once daily., Disp: 90 tablet, Rfl: 3 cholecalciferol (Vitamin D-3) 25 MCG (1000 UT) tablet, Take 2 tablets (50 mcg) by mouth once daily., Disp: , Rfl: citalopram (CeleXA) 20 mg tablet, Take 1 tablet (20 mg) by mouth once daily., Disp: , Rfl: codeine-guaifenesin (Robitussin-AC) 10-100 mg/5 mL syrup, Take by mouth., Disp: , Rfl: qtkyjpsbhvg-rzaqrqrhk-zrzdognx (TRELEGY-ELLIPTA) 100-62.5-25 mcg blister with device, Inhale 1 puff once daily., Disp: , Rfl: lisinopriL-hydrochlorothiazide 10-12.5 mg tablet, Take 1 tablet by mouth once daily., Disp: 90 tablet, Rfl: 3 Assessment/Plan 1. Essential hypertension, benign 2. Palpitations 3. Stage 3 chronic kidney disease, unspecified whether stage 3a or 3b CKD (Multi) 4. Chronic obstructive pulmonary disease, unspecified COPD type (Multi) 5. BMI 29.0-29.9,adult 6. Former smoker Scribe Attestation By signing my name below, I, Qamar Santos LPN attest that this documentation has been prepared under the direction and in the presence of Chely Jefferson MD. Provider Attestation - Scribe documentation All medical record entries made by the Scribe were at my direction and personally dictated by me. I have reviewed the chart and agree that the record accurately reflects my personal performance of the history, physical exam, discussion and plan. documented in this encounter [facility] Work Phone: Instructions 08-29-2023 Patient InstructionsAttachments Note Date & Type Note Facility 08-29-2023 Instructions Lola Breen LPN - 08/29/2023 1:00 PM EDT Please bring all medicines, vitamins, and herbal supplements with you when you come to the office. Prescriptions will not be filled unless you are compliant with your follow up appointments or have a follow up appointment scheduled as per instruction of your physician. Refills should be requested at the time of your visit. BMI was above normal measurement. Current weight: 83.9 kg (185 lb) Weight change since last visit (-) denotes wt loss -3 lbs Weight loss needed to achieve BMI 25: 30.4 Lbs Weight loss needed to achieve BMI 30: -0.5 Lbs Provided instructions on exercise. Dietary education provided The following attachments cannot be sent through Care Everywhere.Mediterranean Diet (Malian)documented in this encounter [facility] Work Phone: Evaluation note 08-29-2023 Note Date & Type Note Facility 08-29-2023 Evaluation note Diagnosis Essential hypertension, benign Stage 3 chronic kidney disease, unspecified whether stage 3a or 3b CKD (Multi) Chronic obstructive pulmonary disease, unspecified COPD type (Multi) BMI 29.0-29.9,adult Former smoker Personal history of tobacco use, presenting hazards to health documented in this encounter [facility] Work Phone: Evaluation note Note Date & Type Note Facility [facility] Work Phone: Reason for referral (narrative) Consultation (Routine) - Authorized Note Date & Type Note Facility Reason for referral (narrati ve) Specialty Diagnoses / Procedures Referred By Contac t Referred To Contact Cardiology Diagnoses Essential hypertension, benign Procedures Follow Up In Cardiology Chely Jefferson MD [address] [address] Chely Jefferson MD [address], [facility] [address] [place] [address] Referral ID Status Reason Start Date Expiration Date V isits Requested Visits Authorized [id number] Authorized 08/29/2023 08/28/2024 1 1 [facility] Work Phone: Summary Purpose Family History No Family History Records FoundUnknown Family Member Name Dates Details Family history of arterioscl erotic cardiovascular disease: Father(V17.49, Z82.49) Status:Active Unknown Family Member Name Dates Details Family history of arterioscl erotic cardiovascular disease: Father(V17.49, Z82.49) Status:Active Unknown Family Member Name Dates Details Family history of arterioscl erotic cardiovascular disease: Father(V17.49, Z82.49) Status:Active Unknown Family Member Name Dates Details Family history of arterioscl erotic cardiovascular disease: Father(V17.49, Z82.49) Status:Active Unknown Family Member Name Dates Details Family history of arterioscl erotic cardiovascular disease: Father(V17.49, Z82.49) Status:Active Unknown Family Member Name Dates Details Family history of arterioscl erotic cardiovascular disease: Father(V17.49, Z82.49) Status:Active Relationship Condition Age at Onset Recorded Date/T [place] father Heart disease Unknown Not Specified Malignant neoplasm Unknown Advance Directives No Advanced Directives Records Found Advance Directive Response Recorded Date/ Time Advance Directives No January 25, 2017 2:19pm Advance Directive Response Recorded Date/ Time Advance Directives No January 25, 2017 1:19pm Chief Complaint * BREANNA AGUILAR is being seen for an annual follow-up of. * Patient is in the office for annual follow-up for the problems noted below. Since her last visit there has been no events of dyspnea chest pain palpitations or any visit to the hospital. She had blood work that was done recently which I reviewed with her the only abnormality is stage III chronic kidney disease unchanged from previously and low-level vitamin D3 level. Her weight is slightly above last visit and encouragement provided to bring it under control. * ASSESSMENT AND PLAN: * 1. Hypertension, under control, multiple medications with no changes necessary. * 2. Stage III chronic kidney disease, nonprogressive. * 3. Overweight. Encouraged the patient to drop her weight further with diet and exercise. * 4. Previous stress test and echocardiogram 2006 were normal there is no reason to repeat these tests at the present time * 5. COPD due to previous tobacco abuse. Currently asymptomatic * 6. Very low vitamin D level, advised patient to take vitamin D3 5000 units daily and check her vitamin D level in few months * She will follow up with me in the office on annual basis. * Chely Jefferson MD, FACC * BREANNA AGUILAR is being seen for an annual follow-up of. * Patient is in the office for annual follow-up for the problems noted below. Since her last visit she gained 11 pounds due to inactivity. She does have COPD from previous tobacco abuse and that examination today demonstrated significantly diminished breath sounds. She has no cough no lower extremity edema no chest pain. She feels tired due to inactivity. Since she started taking vitamin D3 5000 unit daily her vitamin D level went up to the mid 50s. She saw her PCP couple months ago and she sees her twice yearly. Lab data from recent testing were sent to me, I reviewed and discussed with the patient. She continues to have stage IIIa chronic kidney disease. Her pressures in the upper normal range but she is on medical therapy as noted that generally speaking has been effective. * ASSESSMENT AND PLAN: * 1. Hypertension, under control, currently on lisinopril/hydrochlorothiazide and atenolol, with no changes necessary. * 2. Stage III chronic kidney disease, nonprogressive. * 3. Obesity. Encouraged the patient to drop her weight further with diet and exercise. Daily exercise and reduce calorie consumption was advocated. * 4. Previous stress test and echocardiogram 2006 were normal there is no reason to repeat these tests at the present time * 5. COPD due to previous tobacco abuse. Currently asymptomatic * She will follow up with me in the office on annual basis. * Chely Jefferson MD, FACC * BREANNA AGUILAR is being seen for an annual follow-up of. * Patient is in the office for annual follow-up for the problems noted below. Since her last visit she gained 11 pounds due to inactivity. She does have COPD from previous tobacco abuse and that examination today demonstrated significantly diminished breath sounds. She has no cough no lower extremity edema no chest pain. She feels tired due to inactivity. Since she started taking vitamin D3 5000 unit daily her vitamin D level went up to the mid 50s. She saw her PCP couple months ago and she sees her twice yearly. Lab data from recent testing were sent to me, I reviewed and discussed with the patient. She continues to have stage IIIa chronic kidney disease. Her pressures in the upper normal range but she is on medical therapy as noted that generally speaking has been effective. * ASSESSMENT AND PLAN: * 1. Hypertension, under control, currently on lisinopril/hydrochlorothiazide and atenolol, with no changes necessary. * 2. Stage III chronic kidney disease, nonprogressive. * 3. Obesity. Encouraged the patient to drop her weight further with diet and exercise. Daily exercise and reduce calorie consumption was advocated. * 4. Previous stress test and echocardiogram 2006 were normal there is no reason to repeat these tests at the present time * 5. COPD due to previous tobacco abuse. Currently asymptomatic * She will follow up with me in the office on annual basis. * Chely Jefferson MD, FACC Chief Complaint and Reason for Visit Chief Complaint lt lateral ankle chirag n swelling Chief Complaint Z12.31 Chief Complaint Screening Additional Source Comments INFORMATION SOURCE (unrecogn ized section and content) DATE CREATED AUTHOR 09/19/2017 [facility] DATE CREATED AUTHOR AUTHOR'S ORGANIZ ATION 06/22/2020 [facility] DATE CREATED AUTHOR AUTHOR'S ORGANIZ ATION 04/07/2021 [facility] Special[facility] DATE CREATED AUTHOR AUTHOR'S ORGANIZ ATION 07/24/2021 [facility] DATE CREATED AUTHOR AUTHOR'S ORGANIZ ATION 09/06/2022 [employer] DATE CREATED AUTHOR AUTHOR'S ORGANIZ ATION 09/06/2022 [facility] DATE CREATED AUTHOR AUTHOR'S ORGANIZ ATION 06/10/2023 [facility] DATE CREATED AUTHOR AUTHOR'S ORGANIZ ATION 08/30/2023 [facility] DATE CREATED AUTHOR AUTHOR'S ORGANIZ ATION 11/08/2023 [facility] dical Specialists EPIC Care Teams (unrecognized sec tion and content) Team Status: Inactive Member Role Status Dates Gladis Solorzano DO Primary Care Provider Active Esvin Powers DPM Attending Provider Active Team Status: Active Member Role Status Dates Gladis Solorzano DO Primary Care Provider Active Team Status: Inactive Member Role Status Dates Gladis Solorzano , DO Primary Care Provider, Attend ing Provider Active Team Status: Inactive Member Role Status Dates Gladis Solorzano DO Primary Care Pr ovider, Attending Provider Active Start: June 07, 2023 End: June 07, 2023 [employer] Relationship Specialty Start Date End Date QuinteroGladis Brunner DO [address] [place] [address] PCP - General 03/27/99 Goals (unrecognized section and content) Goals may be documented in a n alternate sectionGoals may be documented in an alternate sectionGoals may be documented in an alternate section Reason for Visit (unrecogniz ed section and content) Reason Comments Annual Exam FOR RECORDS PERTAINING TO PATIENTS WHO ARE OR HAVE BEEN ENROLLED IN A CHEMICAL DEPENDENCY/SUBSTANCEABUSE PROGRAM, SOME INFORMATION MAY BE OMITTED. This clinical summary was aggregated from multiple sources. Caution should be exercised in using it in the provision of clinical care. This summary normalizes information from multiple sources, and as a consequence, information in this document may materially change the coding, format and clinical context of patient data. In addition, data may be omitted in some cases. CLINICAL DECISIONS SHOULD BE BASED ON THE PRIMARY CLINICAL RECORDS. [facility] [employer] [facility]. provides no warranty or guarantee of the accuracy or completeness of information in this document.
--- NOTE | 2023-11-23 12:45 | PM.CN ---
Consult Note: HPI Data of Consult Patient: known to practice within the last 3 years Consult date: 11/20/23 Requesting Physician: Gudelia Broderick NP Primary Care Provider: HELEN JEFFERY Consult Narrative Reason for consult: low back, bilateral lower extremity pain Narrative: 68yof who presents for evaluation. she has had 20+ years of low back and leg pain, now worsening over past several months. increasing weakness into bilateral lower extremities. underwent back surgery in 1998. has completed physical therapy and chiropractic therapy >6 weeks in past 3 months, without lasting benefit. uses tylenol, does not like to take meds. denies adverse med side effects. recent lumbar MRI with results available below. cc:: CC: Gudelia Broderick NP Review of Systems ROS Status of ROS 10 or more systems reviewed and unremarkable except as noted in history and below Musculoskeletal Reports: back pain, extremity pain and joint pain [facility] Medical History (Updated 11/23/23 @ 12:47 by Gudelia Broderick NP) Carpal tunnel syndrome ?G56.00 - Carpal tunnel syndrome, unspecified upper limb (ICD-10) COPD (chronic obstructive pulmonary disease) ?J44.9 - Chronic obstructive pulmonary disease, unspecified (ICD-10) HTN (hypertension) ?I10 - Essential (primary) hypertension (ICD-10) Surgical History History of cataract extraction ?Z98.49 - Cataract extraction status, unspecified eye (ICD-10) Hx laparoscopic cholecystectomy ?Z90.49 - Acquired absence of other specified parts of digestive tract (ICD-10) History of carpal tunnel release ?Z98.890 - Other specified postprocedural states (ICD-10) History of back surgery ?Z98.890 - Other specified postprocedural states (ICD-10) History of tubal ligation ?Z98.51 - Tubal ligation status (ICD-10) H/O section ?Z98.891 - History of uterine scar from previous surgery (ICD-10) Meds Home Medications and Allergies Home Medications ?Medication ?Instructions ?Recorded ?Confirmed ?Type albuterol sulfate 90 mcg/actuation 2 inh inhalation Q4H PRN shortness 11/20/23 11/20/23 History aerosol inhaler of breath or wheezing atenolol 50 mg tablet 50 mg PO DAILY 11/20/23 11/20/23 History calcium 500 mg tablet mg 11/20/23 History citalopram 20 mg tablet 20 mg PO DAILY 11/20/23 11/20/23 History fluticasone fur. 100 mcg-umeclid 1 inh inhalation DAILY 11/20/23 11/20/23 History 62.5 mcg-vilant 25 mcg inhalat.powder (Trelegy Ellipta) lisinopril 10 1 tab PO DAILY 11/20/23 11/20/23 History mg-hydrochlorothiazide 12.5 mg tablet magnesium 250 mg tablet 250 mg PO DAILY 11/20/23 11/20/23 History omega 8-vtt-yab-fish oil 1,000 mg 1 cap PO BID 11/20/23 11/20/23 History (120 mg-180 mg) capsule (Fish Oil) vitamin B complex (B-Complex 1 tab PO DAILY 11/20/23 11/20/23 History tablet) Allergies Allergy/AdvReac Type Severity Reaction Status Date / Time adhesive tape Allergy Rash Verified 11/20/23 13:05 Exam Narrative Exam Narrative: Psych-alert and oriented x 3. Attentive and appropriate, constitutionally normal, displays normal mood and affect per situation. There are no obvious deficits in memory, reasoning, or intellect.? Skin-no obvious rashes, bruising, erythema noted to the patient's area of pain.? Extremities- extremities are warm with minimal edema and palpable pulses. Lumbar-tenderness to palpation noted in the lumbar spine and paraspinal musculature. Pain is elicited with flexion, extension, and lateral rotation of the lumbar spine. Range of motion is diminished with these motions. Facet loading maneuvers are positive.? Sacroiliac joint bilateral positive moody fadir thigh thrust and gaenslens, left greater than right Strength-noted to be unremarkable with the exception of decreased strength rated at 4 out of 5 in bilateral quadriceps femoris, anterior tibialis. Sensory-no notable sensory deficits in the bilateral lower extremities to touch or pinprick in all dermatomal distributions with the exception to decreased sensation to the bilateral L4, 5 dermatomal distribution Coordination remains intact.? Gait remains non-antalgic. Results Imaging Lumbar MRI: Attestation: I have reviewed the pertinent imaging results. Radiologist's impression: 12-L1: No significant disc/facet abnormality, spinal stenosis, or foraminal stenosis. L1-L2: No significant disc/facet abnormality, spinal stenosis, or foraminal stenosis. L2-L3: Disc space narrowing and desiccation. Mild posterior broad-based disc protrusion. No central canal or foraminal stenosis L3-L4: Disc space narrowing and disc desiccation. Mild posterior disc/osteophyte complex with ligamentum flavum hypertrophy and facet osteoarthropathy. Mild trefoil narrowing of the central canal. No foraminal stenosis. L4-L5: Moderate disc space narrowing and disc desiccation. Mild diffuse disc bulge with ligamentum flavum hypertrophy and facet osteoarthropathy. No central canal or foraminal stenosis L5-S1: Disc collapse with endplate sclerosis. Mild diffuse disc bulge with facet osteoarthropathy. No central or foraminal stenosis Additional Findings Additional findings: If on a controlled substance or opioids, I have checked an [place] report on this patient and there are no aberrancies noted in the prescribing history.??If on a controlled substance or opioid a drug screen was completed and reviewed within the last year, and if there has not been a drug screen completed we ordered one today to monitor higher risk, state monitored pain medication use. As part of providing excellent, safe, comprehensive care, the following was completed at our patient's visit: 1. A medication reconciliation and review to ensure accurate knowledge of current/active medications, including asking our patients to inform us about any [id number] medications or herbal remedies/nutritional supplements/alternative remedies. 2. A review to specifically ensure our patients have had annual screening for screening for depression, screening for tobacco use, and screening for unhealthy alcohol use. For concerning screenings had a discussion with the patient, provided patient education, and recommended follow-up with primary care provider when appropriate. If patient noted with a risk of falling, they received education on strength, gait, and balance training to prevent future risk of falling. Assessment and Plan Assessment and Plan (1) Lumbar stenosis with neurogenic claudication: (2) Lumbar postlaminectomy syndrome: (3) Sacroiliitis: Plan 68yof who presents for evaluation. failed conservative measures, as noted. given worsening symptoms, exam findings, and MRI results it is essential to proceed with left L4-5 L5-S1 TFESI under fluoroscopy, consider left SIJ injection in the future. she is in agreement. meds reviewed, no changes. follow up after injection.
== END 2023-11-23 12:20 | disposition home or self-care (01) ==
LOC: PM 12:19
PROVIDERS: PCP Internal Medicine; Visit Provider Nurse Practitioner
DX: M48.062 Spinal stenosis, lumbar region with neurogenic claudication (principal); M96.1 Postlaminectomy syndrome, not elsewhere classified; M46.1 Sacroiliitis, not elsewhere classified
CPT/HCPCS: G0463

== ENCOUNTER 2023-12-11 09:31 | Day surgery (SDC) | payer BC, MEDICARE, SELFPAY ==
--- OUTSIDE RECORDS SUMMARY | 2023-12-11 09:55 | XMS_ITS | CCD ---
Author Organization [facility] Inform ion Partnership [facility] Care Team Providers Care Credit Collections Analyst Name Role Phone CHELY JEFFERSON Unavailable Unavailable GLADIS SOLORZANO Unavailable Unavailable Gladis Solorzano Unavailable Unavailable Unavailable DR CHELY JEFFERSON Admitting Unavailable DR CHELY JEFFERSON Attending Unavailable GLADIS LAW Primary Care Unavailable DR CHELY JEFFERSON Consulting Unavailable DO Gladis Solorzano Primary Care Provider BAL Powers Attending Provider [phone] DO Gladis Solorzano Primary Care Provider DO Gladis Solorzano Attending Provider Chely Jefferson Attending Unavailable Chely Jefefrson Referring Unavailable Dr. Gladis Solorzano Primary Care U navailable Gladis Solorzano Admitting Unavailable Gldais Solorzano Attending Unavailable Quintero-Gladis Sofia Primary Care Unavailable Quintero-Auglaize, Gladis Primary Care Unavailable CopRafaela murillo Admitting [...] Drug Class(es) Dates Sig (Normalized) Sig (Original) [id number] 200 actuat albuterol 0.09 mg/actuat metered dose [...] take 1 puff(s) by inhalation once daily hvrridajnhw-avoflihgn-koylclba (TRELEGY-ELLIPTA) 100-62.5-25 mcg blister with device Inhale [...] n 06-07-2023 MM screening mammo BI w/CAD [facility] [place] [address] Mammography Report Signed Patient: Breanna Aguilar MR#: [id number] : 1955 Acct:[id number] Age/Sex: 67 / F ADM Date: 06/07/23 Loc: [place] Room: Type: [facility] Attending Dr: Gladis Solorzano DO Copies to: [...] Miranda Jr., D.OAngel06/07/2023 11:48 AM Dictation Location: [facility] Transcribed By: [facility] 06/07/23 1148 Dictated By: Kyle Miranda Jr, DO 06/07/23 1147 Signed By: 06/07/23 1148 [facility] Office Visit (Cardiology)on 08-24-2022 Follow-up visit [...] office on annual basis. Chely Jefferson MD, [facility] Surgical History Problems History of Back surgery [...] negative for complaint. Vitals Vital Signs Recorded: [id number] 08:39AMRecorded: [id number] 08:28AM [id number], LUE, Sitting [id number], LUE, Sitting Heart Rate60, L Radial Height5 ft 6 in Lluddl793 lb BMI Ujkdubvbuk55.34 kg/m2 BSA Calculated1.95 Tobacco Useb) No PHQ-2 [...] Screening.on 023 Adult depression screening assessment No [facility] DO Work Phone: Fall risk assessment a) No falls within the last year [facility] DO Work Phone: Tobacco use status [facility] b) No [facility] DO Work Phone: VITAMIN D 25 OHon 07-16-2021 VIT D 25-OH 50.6 ng/mL Normal [facility] Comment on above: Performed By: #### V ITAD #### [facility] [address] [place] [address] Dr. Oralia Valdes VIT D RANGES SEE BELOW Normal [facility] Comment on above: Result Comment: <20 ng/mL Vit D deficient 20 - <30 ng/mL Vit D insufficient 30 - 100 ng/mL Vit D sufficient >100 ng/mL Potential Toxicity Performed By: #### V ITAD #### [facility] [address] [place] [address] Dr. Oralia Valdes Tobacco Screening.on 022 Fall risk assessment a) No falls within the last year [facility] DO Work Phone: Tobacco use status [facility] b) No [facility] DO Work Phone: Complete Blood Counton 04-06 Erythrocyte distribution width (RBC) [Ratio] 13.0 % Normal 11.0-15.0 [facility] Comment on above: Performed By: #### L IPD, VITD, TSH reflex FT4, CBC, CMP #### [facility] [address] [place], [place] [id number] Hematocrit (Bld) [Volume fraction] 37.8 % Normal 35.0-47.0 [facility] Comment on above: Performed By: #### L IPD, VITD, TSH reflex FT4, CBC, CMP #### [facility] [address] [place], [place] [id number] Hemoglobin (Bld) [Mass/Vol] 12.2 g/dL Normal 11.6-15.5 [facility] Comment on above: Performed By: #### L IPD, VITD, TSH reflex FT4, CBC, CMP #### [facility] [address] [place], [place] [id number] MCH (RBC) [Entitic mass] 31.1 pg Normal 27.0-33.0 [facility] Comment on above: Performed By: #### L IPD, VITD, TSH reflex FT4, CBC, CMP #### [facility] [address] [place], [place] [id number] MCHC (RBC) [Mass/Vol] 32.3 g/dL Normal 32.0-36.0 [facility] Comment on above: Performed By: #### L IPD, VITD, TSH reflex FT4, CBC, CMP #### [facility] [address] [place], [place] [id number] MCV (RBC) [Entitic vol] 96 fL Normal 80-100 [facility] Comment on above: Performed By: #### L IPD, VITD, TSH reflex FT4, CBC, CMP #### [facility] [address] [place], [place] [id number] Platelet mean volume (Bld) [Entitic vol] 10.20 fL Normal 7.50-12.50 [facility] Comment on above: Performed By: #### L IPD, VITD, TSH reflex FT4, CBC, CMP #### [facility] [address] [place], [place] [id number] Platelets (Bld) [#/Vol] 260 10*3/uL Normal 140-400 [facility] Comment on above: Performed By: #### L IPD, VITD, TSH reflex FT4, CBC, CMP #### [facility] [address] [place], [place] [id number] RBC (Bld) [#/Vol] 3.92 10*6/uL Normal 3.90-5.20 [facility] Specialist Comment on above: Performed By: #### L IPD, VITD, TSH reflex FT4, CBC, CMP #### [facility] [address] [place], [place] [id number] RDW-SD 45.7 fL Normal 37.0-50.0 [facility] Comment on above: Performed By: #### L IPD, VITD, TSH reflex FT4, CBC, CMP #### [facility] [address] [place], [place] [id number] WBC (Bld) [#/Vol] 7.3 10*3/uL Normal 3.8-11.0 [facility] [place] [facility] Comment on above: Performed By: #### L IPD, VITD, TSH reflex FT4, CBC, CMP #### [facility] [address] [place], [place] [id number] Comprehensive Metabolic Pane [facility] 04-06-2021 Albumin [Mass/Vol] 4.3 g/dL Normal 3.6-5.1 [facility] rn [place] [facility] Comment on above: Performed By: #### L IPD, VITD, TSH reflex FT4, CBC, CMP #### [facility] [address] [place], [place] [id number] Albumin/Globulin [Mass ratio] 1.4 {ratio} Normal 1.0-2.5 [facility] Comment on above: Performed By: #### L IPD, VITD, TSH reflex FT4, CBC, CMP #### [facility] [address] [place], [place] [id number] ALP [Catalytic activity/Vol] 72 U/L Normal 35-119 [facility] Comment on above: Performed By: #### L IPD, VITD, TSH reflex FT4, CBC, CMP #### [facility] [address] [place], [place] [id number] ALT [Catalytic activity/Vol] 16 U/L Normal 6-33 [facility] Comment on above: Result Comment: 02/24 Female reference range changed. Performed By: #### L IPD, VITD, TSH reflex FT4, CBC, CMP #### [facility] [address] [place], [place] [id number] Anion gap [Moles/Vol] 17 mmol/L Normal 12-20 [facility] Comment on above: Result Comment: Effmaikol ctive 04/01/2019 reference range changed. Performed By: #### L IPD, VITD, TSH reflex FT4, CBC, CMP #### [facility] [address] [place], [place] [id number] AST [Catalytic activity/Vol] 20 U/L Normal 9-34 [facility] Comment on above: Performed By: #### L IPD, VITD, TSH reflex FT4, CBC, CMP #### [facility] [address] [place], [place] [id number] Bilirubin [Mass/Vol] 0.33 mg/dL Normal 0.30-1.20 [facility] Comment on above: Performed By: #### L IPD, VITD, TSH reflex FT4, CBC, CMP #### [facility] [address], [place] [id number] BUN/CREA 17 Ratio Normal 6-22 [facility] Comment on above: Performed By: #### L IPD, VITD, TSH reflex FT4, CBC, CMP #### [facility] [address] [place], [place] [id number] Calcium [Mass/Vol] 9.3 mg/dL Normal 8.6-10.2 [facility] Comment on above: Performed By: #### L IPD, VITD, TSH reflex FT4, CBC, CMP #### [facility] [address] [place], [place] [id number] Chloride [Moles/Vol] 104 mmol/L Normal 98-107 [facility] Comment on above: Performed By: #### L IPD, VITD, TSH reflex FT4, CBC, CMP #### [facility] [address] [place], [place] [id number] CO2 [Moles/Vol] 24 mmol/L Normal 20-31 [facility] Comment on above: Performed By: #### L IPD, VITD, TSH reflex FT4, CBC, CMP #### [facility] [address] [place], [place] [id number] Creatinine [Mass/Vol] 1.1 mg/dL Normal 0.6-1.4 [facility] Comment on above: Performed By: #### L IPD, VITD, TSH reflex FT4, CBC, CMP #### [facility] [address] [place], [place] [id number] eGFRAA 60 mL/min/1.73m2 Low >60 [facility] Comment on above: Performed By: #### L IPD, VITD, TSH reflex FT4, CBC, CMP #### [facility] [address] [place], [place] [id number] eGFRNAA 50 mL/min/1.73m2 Low >60 [facility] Comment on above: Performed By: #### L IPD, VITD, TSH reflex FT4, CBC, CMP #### [facility] [address] [place], [place] [id number] Globulin (S) [Mass/Vol] 3.0 g/dL Normal 1.9-3.7 [facility] Comment on above: Performed By: #### L IPD, VITD, TSH reflex FT4, CBC, CMP #### [facility] [address] [place], [place] [id number] Glucose [Mass/Vol] 94 mg/dL Normal 65-99 [facility] Comment on above: Result Comment: For FASTING Glucose --- ADA reference ranges: Normal 65-99 mg/dl Prediabetes 100-125 Diabetes >/= 126 Performed By: #### L IPD, VITD, TSH reflex FT4, CBC, CMP #### [facility] [address] [place], [place] [id number] Potassium [Moles/Vol] 4.5 mmol/L Normal 3.5-5.5 [facility] Comment on above: Performed By: #### L IPD, VITD, TSH reflex FT4, CBC, CMP #### [facility] [address] [place], [place] [id number] Protein [Mass/Vol] 7.3 g/dL Normal 6.1-8.1 [facility]ra ty [place] [facility] Comment on above: Performed By: #### L IPD, VITD, TSH reflex FT4, CBC, CMP #### [facility] [address] [place], [place] [id number] Sodium [Moles/Vol] 140 mmol/L Normal 135-146 [facility] ty [place] [facility] Comment on above: Performed By: #### L IPD, VITD, TSH reflex FT4, CBC, CMP #### [facility] [address] [place], [place] [id number] Urea nitrogen [Mass/Vol] 18 mg/dL Normal 7-25 [facility] Comment on above: Performed By: #### L IPD, VITD, TSH reflex FT4, CBC, CMP #### [facility] [address] [place], [place] [id number] Lipid Panelon 04-06-2021 Cholesterol [Mass/Vol] 236 mg/dL High 125-200 [facility] Comment on above: Order Comment: FASTI NG-But DO drink water prior to going to the lab Result Comment: Low risk < 200mg/dL Borderline risk 201-239 mg/dl High risk > or equal to 240 Performed By: #### L IPD, VITD, TSH reflex FT4, CBC, CMP #### [facility] [address] [place], [place] [id number] Cholesterol in HDL [Mass/Vol] 71 mg/dL Normal >40 [facility] Comment on above: Order Comment: FASTI NG-But DO drink water prior to going to the lab Result Comment: High Cardiovascular Risk HDL <40 mg/dL Low Cardiovascular Risk HDL > or equal to 60 mg/dl Performed By: #### L IPD, VITD, TSH reflex FT4, CBC, CMP #### [facility] [address] [place], [place] [id number] Cholesterol in LDL [Mass/Vol] 140 mg/dL Normal [facility] Comment on above: Order Comment: [...] FT4, CBC, CMP #### [facility] [address] [place], [place] [id number] Cholesterol in VLDL [Mass/Vol] 25 mg/dL Normal [facility] Comment on above: Order Comment: FASTI NG-But DO drink water prior to going to the lab Performed By: #### L IPD, VITD, TSH reflex FT4, CBC, CMP #### [facility] [address] [place], [place] [id number] Cholesterol.total/C holesterol in HDL [Mass ratio] 3 {ratio} Normal [facility] Comment on above: Order Comment: FASTI NG-But DO drink water prior to going to the lab Performed By: #### L IPD, VITD, TSH reflex FT4, CBC, CMP #### [facility] [address] [place], [place] [id number] Triglyceride [Mass/Vol] 123 mg/dL Normal 30-150 [facility] Comment on above: Order Comment: FASTI NG-But DO drink water prior to going to the lab Result Comment: TRIG ATPIII CLASSIFICATIONS TRIG less than 150 mg/dl Normal TRIG 150-199 mg/dl Borderline High TRIG 200-500 mg/dl High TRIG greather than 500 mg/dl Very High Performed By: #### L IPD, VITD, TSH reflex FT4, CBC, CMP #### [facility] [address] [place], [place] [id number] Microalbumin (with Creat)on 04-06-2021 mALB 8.3 mg/dL Normal [facility] Comment on above: Result Comment: mALB reference range not established. Performed By: #### m ALBC #### [facility] [address] [place], [place] [id number] mALB/Creat Ratio 107.8 MCG/MG Normal [facility] Comment on above: Result Comment: The ADA (Diabetes Care 26:S94-S98, 2003) defines abnormalities in Albumin excretion as follows: Category Result (MCG/MG Creatinine) Normal <30 Microalbuminuria 30-299 Clinical Albuminuria > or = 300 Performed By: #### m ALBC #### [facility] [address] [place], [place] [id number] UCREA 77 mg/dL Normal 28-217 [facility] Comment on above: Performed By: #### m ALBC #### [facility] [address] [place], [place] [id number] TSH w/ Reflex to Free T4on 0 04-06-2021 TSH 1.750 uIU/mL Normal 0.400-4.500 [facility] Comment on above: Performed By: #### L IPD, VITD, TSH reflex FT4, CBC, CMP #### [facility] [address] [place], [place] [id number] Vitamin B12on 04-06-2021 Cobalamin (Vitamin B12) [Mass/Vol] 811 pg/mL Normal 211-946 [facility] Comment on above: Performed By: #### B 12 #### [facility] [address] [place], [place] [id number] Vitamin D 25-OHon 04-06-2021 VIT D 25 OH 26 ng/ml Low >29 [facility] Comment on above: Result Comment: Amada min D Status Deficiency <20 ng/mL Insufficiency 20-29 ng/mL Optimal 30-100 ng/mL Possible Toxicity >=150 ng/mL Performed By: #### L IPD, VITD, TSH reflex FT4, CBC, CMP #### [facility] [address] [place], [place] [id number] Outside Records Officeon Outside Records Office [id number]# 1.00CD:127 Normal [facility] Referrals Officeon Referrals Office [id number]# 1.00CD:127 Normal [facility] Creatinineon 04-05-2017 Creatinine 1.27 mg/dL High 0.50-1.[address] [facility] Comment on above: Performed By: #### 1 [id number] ####[facility] [address] [place] [address] eGFR (MDRD) 43 mL/min/{1.73_m2} Normal [facility] Comment on above: Result Comment: Inte rpretation for Chronic Kidney Disease:Stages 1&2 >60 Healthy or potential kidney damage.Mild decrease of GFR.Stage 3 30-59 Moderate decrease of GFR.Stage 4 15-29 Severe decrease of GFR.Stage 5 <15 Kidney failure or on dialysis. Performed By: #### 1 [id number] ####[facility] [address] [place] [address] Electrolyte Panelon 01-10-20 18 Anion gap 11 mmol/L Normal 10-20 [facility] Comment on above: Performed By: #### 1 [id number] ####[facility] [address] [place] [address] Bicarbonate (HCO3) 30 mmol/L Normal 21-32 [facility] Comment on above: Performed By: #### 1 [id number] ####[facility] [address] [place] [address] Chloride 101 mmol/L Normal 98-107 [facility] Healthcare Comment on above: Performed By: #### 1 [id number] ####[facility] [address] [place] [address] Potassium molar conc 4.4 mmol/L Normal 3.5-5.[address] [facility] Comment on above: Performed By: #### 1 [id number] ####[facility] [address] [facility] [place] [address] Sodium 138 mmol/L Normal 136-[address] [facility] Comment on above: Performed By: #### 1 [id number] ####[facility] [address] [place] [address] Urea Nitrogenon 04-05-2017 Urea nitrogen 20 mg/dL Normal 6-23 [facility] are Comment on above: Performed By: #### 1 [id number] ####[facility] [address] [place] [address] Vital Signs Date Time Vital Sign Value Performing Clinician Keshiai joel 08-29-2023 12:55-0400 Body height 167.6 cm Chely Jefferson MD Work Phone: [facility] 08-29-2023 12:55-0400 Body mass index (BMI) [Ratio] 29.86 kg/m2 Chely Jefferson MD Work Phone: [facility] 08-29-2023 12:55-040 Body weight 83.92 kg Chely Jefferson MD Work Phone: [facility] 08-29-2023 12:55-0400 Diastolic blood pressure 68 mm[Hg] Chely Jefferson MD Work Phone: [facility] 08-29-2023 12:55-0400 Heart rate 56 /min Chely Jefferson MD Work Phone: [facility] 08-29-2023 12:55-0400 Systolic blood pressure 118 mm[Hg] Chely Jefferson MD Work Phone: [facility] 08-24-2022 08:39-0400 Diastolic blood pressure 80 mm[Hg] Gladis Lerma Quintero-Auglaize Work Phone: [facility] [address] DO Work Phone: 08-24-2022 08:39-0400 Systolic blood pressure 136 mm[Hg] Gladis Florentin [facility] Work Phone: [facility] [address] DO Work Phone: 08-24-2022 08:28-0400 Body height 167.64 cm Gladis Florentin Quintero-Augla[place] Work Phone: [facility] [address] DO Work Phone: 08-24-2022 08:28-0400 Body mass index (BMI) [Ratio] 30.34 kg/m2 Gladis Florentin Quintero-Augla[place] Work Phone: [facility] [address] DO Work Phone: 08-24-2022 08:28-0400 Body surface area Derived from formula 1.95 m2 Gladis Florentin Quintero-Auglaize Work Phone: [facility] [address] DO Work Phone: 08-24-2022 08:28-0400 Body weight 85.28 kg Gladis Florentin Quintero-Augla[place] Work Phone: [facility] [address] DO Work Phone: 08-24-2022 08:28-0400 Diastolic blood pressure 78 mm[Hg] Gladis Lerma Qu[facility] Work Phone: [facility] [address] DO Work Phone: 08-24-2022 08:28-0400 Heart rate 60 /min Gladis Florentin Quintero-[place] Work Phone: [facility] [address] DO Work Phone: 08-24-2022 08:28-0400 Systolic blood pressure 146 mm[Hg] Gladis Florentin Quintero[facility] Work Phone: [facility] [address] DO Work Phone: 04-26-2021 14:04-0500 Body height 167.64 cm Gladis Florentin Quintero[facility] Work Phone: [facility] [address] DO Work Phone: 04-26-2021 14:04-0500 Body mass index (BMI) [Ratio] 28.65 kg/m2 Gladis Florentin Quintero-[place] Work Phone: [facility] [address] DO Work Phone: 04-26-2021 14:04-0500 Body surface area Derived from formula 1.9 m2 Gladis D Quintero-Auglaize Work Phone: [facility] [address] DO Work Phone: 04-26-2021 14:04-0500 Body weight 80.51 kg Gladis Florentin Qu[facility] Work Phone: [facility] DO Work Phone: 04-26-2021 14:04-0500 Diastolic blood pressure 63 mm[Hg] Gladis Florentin Qu[facility] Work Phone: [facility] [address] DO Work Phone: 04-26-2021 14:04-0500 Heart rate 66 /min Gladis Florentin Quintero[facility] Work Phone: [facility] [address] DO Work Phone: 04-26-2021 14:04-0500 Systolic blood pressure 117 mm[Hg] Gladis D Quintero-Auglaize Work Phone: [facility] [address] DO Work Phone: Encounters Encounter Date Encounter Type Care Provider Facility Start: 11-07-2023 End: 11-07-2023 ambulatory GLADIS D QUINTERO-EMERY Not Available Start: 08-29-2023 End: 08-29-2023 Office outpatient visit 25 minutes Chely Jefferson MD Work Phone: [facility] Comment on above: Essential hypertensi on, benign; Stage 3 chronic kidney disease, unspecified whether stage 3a or 3b CKD (Multi); Chronic obstructive pulmonary disease, unspecified COPD type ([facility]); BMI 29.0-29.9,adult; Former smoker Start: 08-29-2023 End: 08-29-2023 ambulatory CHELY Carcamo [facility] Ambulatory Start: 06-07-2023 End: 06-07-2023 ambulatory Gladis Quintero-Auglaize Facility:[facility] Start: 06-07-2023 End: 06-07-2023 ambulatory DO Gladis Quintero-Auglaize Work Phone: [facility] Work Phone: Start: 06-07-2023 End: 06-07-2023 Patient encounter procedure DO Gladis Quintero-Auglaize Work Phone: [facility] Work Phone: Start: 05-09-2023 End: 05-09-2023 ambulatory GLADIS D QUINTERO-EMERY Not Available Start: 12-19-2022 End: 12-20-2022 ambulatory Gladis Quintero-Auglaize Facility:[facility] Start: 08-24-2022 Office outpatient vi sit 25 minutes Gladis D Quintero-Auglaize Work Phone: [facility] DO Work Phone: Start: 08-24-2022 ambulatory Chely Jefferson Facility : Start: 07-14-2022 Rx Renewal Gladis D Weave r-Auglaize Work Phone: [employer] [address] DO Work Phone: Start: 05-23-2022 End: 05-23-2022 ambulatory DO Gladis Quintero-Auglaize Work Phone: [facility] Work Phone: Start: 05-23-2022 End: 05-23-2022 Patient encounter procedure DO Gladis Quintero-Auglaize Work Phone: [facility] Work Phone: Start: 04-14-2022 Rx Renewal Gladis D Weave r-Auglaize Work Phone: [employer] [facility] [address] DO Work Phone: Start: 12-22-2021 End: 12-22-2021 ambulatory DO Gladis Quintero-Auglaize Work Phone: [facility] Work Phone: Start: 12-22-2021 End: 12-22-2021 Patient encounter procedure DO Gladis Quintero-Auglaize Work Phone: [facility] Start: 07-21-2021 Encounter for genera l adult medical examination without abnormal findings DR CHELY JEFFERSON [facility] Start: 07-16-2021 End: 07-17-[address] CHELY JEFFERSON Facility:[facility] Start: 07-16-2021 End: 07-17-2021 Encounter for general adult medical examination without abnormal findings DR CHELY JEFFERSON Facility:[facility] Start: 04-26-2021 Office outpatient vi sit 25 minutes Gladis D Quintero-Auglaize Work Phone: [facility] [address] DO Work Phone: Start: 03-01-2021 Rx Renewal Chely Jefferson MD Work Phone: [facility] [address] DO Work Phone: Start: 04-05-2017 Ambulatory CHELY JEFFERSON Facility :[id number] Procedures Date Procedure Procedure Detail Performing Clinician Start: 06-07-2023 End: 06-07-2023 Screening mammography of bilateral breasts DO Gladis Quitnero-Auglaize Work Phone: Start: 05-23-2022 Screening mammograph y of bilateral breasts DO Gladis Quintero-Auglaize Work Phone: Start: 12-22-2021 Radionuclide three-p hase bone study DO Gladis Quintero-Auglaize Work Phone: Cataract surgery Gladis D We aver-[facility]la[facility] Work Phone: section Gladis D We [facility] Work Phone: Ligation of fallopian tube S kylie D Quintero[facility] Work Phone: Procedure on back Gladis D W eaver-[place] Work Phone: Tooth extraction Gladis D We aver[facility] Work Phone: Total colonoscopy Gladis D W eaver-[place] Work Phone: Plan of Treatment Date Care Activity Detail Author Start: 08-27-2024 End: 08-27-2024 Patient encounter procedure 08/27/2024 10:00 AM EDT Office Visit [facility] [address] [facility] [address] [place] [address] Chely Jefferson MD [address] [facility] [facility] [place] [address] [facility] Start: 06-06-2024 Screening for malignant neoplasm of breast Mammogram [facility] Start: 11-26-2023 Influenza vaccination Influenza Vaccine (Season Ended) [facility] Start: 08-29-2023 FUV, Provider: Chely Jefferson, Status: Pen, Time: 8:30 AM FUV, Provider: Chely Jefferson, Status: Pen, Time: 8:30 AM [employer] 250 DO Work Phone: Start: 12-01-2022 DTaP/Tdap/Td Vaccines (1 - Tdap) DTaP/Tdap/Td Vaccines (1 - Tdap) [facility] Start: 11-25-2022 COVID-19 Vaccine ( season) COVID-19 Vaccine ( season) [facility] Start: 08-24-2022 FUV, Provider: Chely Jefferson, Status: Pen, Time: 8:30 AM FUV, Provider: Chely Jefferson, Status: Pen, Time: 8:30 AM [employer] 600 DO Work Phone: Start: 04-27-2022 FUV, Provider: Chely Jefferson, Status: Pen, Time: 8:30 AM FUV, Provider: Chely Jefferson, Status: Pen, Time: 8:30 AM [employer] 250 DO Work Phone: Start: 03-31-2021 FUV, Provider: Chely Jefferson, Status: Pen, Time: 8:30 AM FUV, Provider: Chely Jefferson, Status: Pen, Time: 8:30 AM [employer] 250 DO Work Phone: Start: 2015 RSV patients and/or patients aged 60+ years (1 - 1-dose 60+ series) RSV patients and/or patients aged 60+ years (1 - 1-dose 60+ series) [facility] Start: 09-02-2005 Zoster Vaccines (1 of 2) Zoster Vaccines (1 of 2) [facility] Start: 09-02-1973 Diabetes mellitus screening Diabetes Screening [facility] Start: 09-02-1973 Hepatitis C screening Hepatitis C Screening [facility] Start: 09-02-1961 Pneumococcal Vaccine: 65+ Years (1 of 2 - PCV) Pneumococcal Vaccine: 65+ Years (1 of 2 - PCV) [facility] Start: 1955 Lipid panel Lipid Panel [facility] Start: 1955 Screening for malignant neoplasm of colon [facility] Start: 1955 Screening for osteoporosis Bone Density Scan [facility] Start: 1955 Yearly Adult Physical Yearly Adult Physical [facility] Payers Date Payer Category Payer Unknown 2023 Unknown [id number] 2023 Medicare MEDICARE MEDICAR E PART A AND B [id number] 2023-Present [address] [place] [address] [id number] 2023 Medicare [id number] 2022 Self-pay [id number] 2021 Unknown [id number] 1959 Unknown [id number] 1955 Unknown [id number] 1955 Unknown [id number] 1955 Unknown [id number] 1955 Unknown [id number] 1955 Unknown [id number] Private Health Insurance [facility] [id number] Unknown [id number] Unknown [id number] Unknown [id number] Social History Date Type Detail Facility Start: 08-29-2023 Alcohol use Alcohol use [facility] DO Work Phone: Comment on above: 4 cups of coffee bianca ly.; quit 2005; Start: 1955 Sex Assigned At Female F [facility] Start: 12-19-2022 End: 05-16-2023 Tobacco smoking status NHIS Ex-smoker (finding) [facility] History of tobacco use Current smoker [facility] Work Phone: History of tobacco use Cigarette Smoker [facility] Work Phone: Start: 08-29-2023 Alcoholic beverage intake Current drinker of alcohol (finding) [facility] Work Phone: Start: 08-29-2023 Tobacco use panel [facility] Work Phone: Start: 08-29-2023 Alcohol Comment rarely [facility] Work Phone: Start: 1955 Sex assigned at Not on file [facility] Work Phone: Start: 08-19-2023 End: 08-29-2023 Exposure to SARS-CoV-2 (event) Not sure [facility] History of Present illness Narrative 08-29-2023 Chely [...] office on annual basis. Chely Jefferson MD, [facility] Review of Systems Cardiovascular: Positive for palpitations. [...] syrup, Take by mouth., Disp: , Rfl: ihgxzwyyjaa-uppilgpkj-rzlitwqa (TRELEGY-ELLIPTA) 100-62.5-25 mcg blister with device, Inhale [...] discussion and plan. documented in this encounter [facility] Work Phone: Instructions 08-29-2023 Patient InstructionsAttachments Note [...] cannot be sent through Care Everywhere.Mediterranean Diet (Luxembourgish)documented in this encounter [facility] Work Phone: Evaluation note 08-29-2023 Note Date & Type Note Facility 08-29-2023 Evaluation note Diagnosis Essential hypertension, benign Stage 3 chronic kidney disease, unspecified whether stage 3a or 3b CKD (Multi) Chronic obstructive pulmonary disease, unspecified COPD type (Multi) BMI 29.0-29.9,adult Former smoker Personal history of tobacco use, presenting hazards to health documented in this encounter [facility] Work Phone: Evaluation note Note Date & Type Note Facility [facility] Reason for referral (narrative) Consultation (Routine) - Authorized Note Date & Type Note Facility Reason for referral (narrati ve) Specialty Diagnoses / Procedures Referred By Contac t Referred To Contact Cardiology Diagnoses Essential hypertension, benign Procedures Follow Up In Cardiology Chely Jefferson MD [address], [address] [address] Chely Jefferson MD [address], [facility] [address] [place] [address] Referral ID Status Reason Start Date Expiration Date V isits Requested Visits Authorized [id number] Authorized 08/29/2023 08/28/2024 1 1 [facility] Work Phone: Summary Purpose Family History No [...] section and content) DATE CREATED AUTHOR 09/19/2017 [facility] DATE CREATED AUTHOR AUTHOR'S ORGANIZ ATION 06/22/2020 [facility] DATE CREATED AUTHOR AUTHOR'S ORGANIZ ATION 04/07/2021 [facility] dical Specialist DATE CREATED AUTHOR AUTHOR'S ORGANIZ ATION 07/24/2021 [facility] DATE CREATED AUTHOR AUTHOR'S ORGANIZ ATION 09/06/2022 [facility] DATE CREATED AUTHOR AUTHOR'S ORGANIZ ATION 09/06/2022 [facility] DATE CREATED AUTHOR AUTHOR'S ORGANIZ ATION 06/10/[address] [facility] DATE CREATED AUTHOR AUTHOR'S ORGANIZ ATION 08/30/2023 [facility] DATE CREATED AUTHOR AUTHOR'S ORGANIZ ATION 11/08/2023 [facility] dical Specialists EPIC Care Teams (unrecognized sec [...] June 07, 2023 End: June 07, 2023 Credit Collections Analyst Relationship Specialty Start Date End Date QuinteroGladis Brunner DO [address] [place] [address] PCP - General 03/27/99 Goals (unrecognized section [...] BE BASED ON THE PRIMARY CLINICAL RECORDS. [facility]. provides no warranty or guarantee of the accuracy or completeness of information in this document.
[2023-12-11 10:00] VITALS: BP 145/76; PULSE 54; TEMP 36.2; O2SAT 100
[2023-12-11 10:29] VITALS: BP 196/86; PULSE 61; O2SAT 97
[2023-12-11 10:30] VITALS: BP 218/86; PULSE 60; O2SAT 97
--- NOTE | 2023-12-11 10:34 | P.ON_ITS ---
Date of procedure: 12/11/23 Pre-op diagnosis: Pain due to lumbar stenosis with neurogenic claudication Post-op diagnosis: same as pre-op Procedure: Procedure: Left L4-5, L5-S1 transforaminal epidural steroid injection Medications: Bupivacaine 0.25% 2cc, lidocaine 2% 1cc, kenalog 80mg The patient was seen and examined in the preoperative holding area.? Informed consent was obtained and placed on the chart.? Patient was brought to the medical procedure unit and placed in the prone position where a timeout was completed verifying the correct patient, procedure site, position, and planned special equipment using sterile aseptic technique.? Under direct fluoroscopic visualization a 25-gauge Quincke tipped spinal needle was advanced to the designated neural foramen where contrast dye was injected to show adequate spread.? The needle was inserted at level left L4-5. There was no evidence of vascular or adverse uptake.? Epidural spread was appreciated.? The above- mentioned injectate was then placed in a 1.5 mL aliquot preceded by negative aspiration.? The needle was removed. The needle was inserted and the procedure repeated at level left L5-S1.? The surgery site was covered.? Patient was taken to the postprocedural recovery area and monitored for an appropriate length of time before found suitable for discharge in the accompaniment of a responsible adult. Anesthesia: Local Surgeon: Megan Pappas Pathology: none sent Condition: stable Disposition: no change
[2023-12-11] MEDS: 0.9 % SODIUM CHLORIDE 10 ML SYRINGE - SALINE FLUSH INJ (10:35)
[2023-12-11] MEDS: IOHEXOL 240 MG/ML - 10 ML VIAL 12 MG INJ (10:35)
[2023-12-11] MEDS: BUPIVACAINE HCL 0.25% PF 25 MG/10 ML VIAL INJ (10:35)
[2023-12-11] MEDS: TRIAMCINOLONE ACETONIDE 40 MG/ML VIAL 80 MG INJ (10:36)
[2023-12-11] MEDS: LIDOCAINE HCL 2% 400 MG/20 ML MDV INJ (10:36)
== END 2023-12-11 10:40 | disposition home or self-care (01) ==
LOC: SURGOUT 09:33
PROVIDERS: PCP Internal Medicine; Visit Provider Anesthesiology
DX: M48.062 Spinal stenosis, lumbar region with neurogenic claudication (principal)
CPT/HCPCS: 64483; 64484; J0665; J3301; Q9966

== ENCOUNTER 2023-12-20 08:22 | Outpatient (OUT) | payer BC, MEDICARE, SELFPAY ==
--- NOTE | 2023-12-20 08:43 | P.CN_ITS ---
Consult Note: HPI Data of Consult Patient: known to practice within the last 3 years Consult date: 11/20/23 Requesting Physician: Gudelia Broderick NP Primary Care Provider: HELEN JEFFERY Consult Narrative Reason for consult: low back, bilateral lower extremity pain Narrative: 68yof who presents for evaluation. she has had 20+ years of low back and leg pain, now worsening over past several months. increasing weakness into bilateral lower extremities. underwent back surgery in 1998. has completed physical therap y and chiropractic therapy >6 weeks in past 3 months, without lasting benefit. uses tylenol, does not like to take meds. denies adverse med side effects. recent lumbar MRI with results available below. recently underwent left L4-5 L5- S1 TFESI with 90% improvement in pain and functional ability ongoing. Patient would like to address chronic bilateral knee pain secondary to OA unresponsive to OTC creams, tylenol, heat/ice, stretching, and HEP greater than 6 weeks. Patient has not had injections in the last year, no imaging available. Patient is not interested in surgical intervention. cc:: CC: Gudelia Broderick NP Review of Systems ROS Status of ROS 10 or more systems reviewed and unremark able except as noted in history and below Musculoskeletal Reports: joint pain; Denies: back pain PFSH PFSH Medical History Carpal tunnel syndrome ?G56.00 - Carpal tunnel syndrome, unspecified upper limb (ICD-10) COPD (chronic obstructive pulmonary disease) ?J44.9 - Chronic obstructive pulmonary disease, unspecified (ICD-10) HTN (hypertension) ?I10 - Essential (primary) hypertension (ICD-10) Surgical History History of cataract extraction ?Z98.49 - Cataract extraction status, unspecified eye (ICD-10) Hx laparoscopic cholecystectomy ?Z90.49 - Acquired absence of other specified parts of digestive tract (ICD- 10) History of carpal tunnel release ?Z98.890 - Other specified postprocedural states (ICD-10) History of back surgery ?Z98.890 - Other specified postprocedural states (ICD-10) History of tubal ligation ?Z98.51 - Tubal ligation status (ICD-10) H/O section ?Z98.891 - History of uterine scar from previous surgery (ICD-10) Meds Home Medications and Allergies Home Medications ?Medication ?Instructions ?Recorded ?Confirmed ?Type albuterol sulfate 90 mcg/actuation 2 inh inhalation Q4H PRN shortness 11/20/23 12/11/23 History aerosol inhaler of breath or wheezing atenolol 50 mg tablet 50 mg PO DAILY 11/20/23 12/11/23 History calcium 500 mg tablet 500 mg 11/20/23 History citalopram 20 mg tablet 20 mg PO DAILY 11/20/23 12/11/23 History fluticasone fur. 100 mcg-umeclid 1 inh inhalation DAILY 11/20/23 12/11/23 History 62.5 mcg-vilant 25 mcg inhalat.powder (Trelegy Ellipta) lisinopril 10 1 tab PO DAILY 11/20/23 12/11/23 History mg-hydrochlorothiazide 12.5 mg tablet magnesium 250 mg tablet 250 mg PO DAILY 11/20/23 12/11/23 History omega 2-zwp-yym-fish oil 1,000 mg 1 cap PO BID 11/20/23 12/11/23 History (120 mg-180 mg) capsule (Fish Oil) vitamin B complex (B-Complex 1 tab PO DAILY 11/20/23 12/11/23 History tablet) Allergies Allergy/AdvReac Type Severity Reaction Status Date / Time adhesive tape Allergy Rash Verified 12/11/23 09:56 Exam Constitutional Documenting provider has reviewed patient's vital signs: yes Common normals: no apparent distress, oriented x3, healthy appearing, alert and well nourished General appearance: cooperative HENNM Common normals: normocephalic, hearing grossly normal bilaterally and moist oral mucous membranes Head and scalp: normocephalic Eye Common normals: PERRL Pupil: PERRL Neck & C-Spine Common normals: full ROM General: normal visual inspection Chest Common normals: inspection of chest normal Respiratory Common normals: normal respiratory effort, no retractions and no use of accessory muscles Back & Pelvis Lumbar spine/lower back: lumbar ROM normal, pain with ROM and straight leg raise negative bilaterally Sacroiliac joints: SI joint(s) abnormal Other: bilateral sij positive moody(patricks), gaenslens, thigh thrust, compression test Extremity Common normals: normal to inspection and full ROM Right lower extremity: knee joint Left lower extremity: knee joint Other: mild edema to bilateral knees, no instability noted on exam. moderate crepitus. pain increased with medial and lateral stress testing. no redness or warmth to touch. Neuro Common normals: oriented x3, CN's II-XII intact bilaterally, moves all extremities, no focal motor deficits, no sensory deficits noted and deep tendon reflexes 2+ bilaterally Sensorium/orientation: alert Motor exam: strength 5/5 throughout and no movement abnormalities noted Psych Common normals: mental status grossly normal, thought process normal, cooperative, affect normal, speech normal and activity/motor behavior normal Speech: normal speech Thought process: normal thought process Results Additional Findings Additional findings: If on a controlled substance or opioids, I have checked an [place]AR[place] report on this patient and there are no aberrancies noted in the prescribing history.??If on a controlled substance or opioid a drug screen was completed and reviewed within the last year, and if there has not been a drug screen completed we ordered one today to monitor higher risk, state monitored pain medication use. As part of providing excellent, safe, comprehensive care, the following was completed at our patient's visit: 1. A medication reconciliation and review to ensure accurate knowledge of current/active medications, including asking our patients to inform us about any zxxa-hia-notpzvk medications or herbal remedies/nutritional supplements/alternative remedies. 2. A review to specifically ensure our patients have had annual screening for screening for depression, screening for tobacco use, and screening for unhealthy alcohol use. For concerning screenings had a discussion with the patient, provided patient education, and recommended follow-up with primary care provider when appropriate. If patient noted with a risk of falling, they received education on strength, gait, and balance training to prevent future risk of falling. Assessment and Plan Assessment and Plan (1) Lumbar stenosis with neurogenic claudication: (2) Lumbar postlaminectomy syndrome: (3) Sacroiliitis: (4) Bilateral primary osteoarthritis of knee: (5) Bilateral knee pain: Plan left L4/5 L5/S1 TFESI providing 90% improvement ongoing continue PRN tylenol, cannot take nsaids due to CKD update bilateral knee xray proceed with bilateral knee injection for OA/pain with Dr Pappas f/u after injection
== END 2023-12-20 08:23 | disposition home or self-care (01) ==
LOC: PM 08:22
PROVIDERS: PCP Internal Medicine; Visit Provider Nurse Practitioner
DX: M25.562 Pain in left knee (principal); M25.561 Pain in right knee; M17.0 Bilateral primary osteoarthritis of knee; M25.462 Effusion, left knee; M25.461 Effusion, right knee
CPT/HCPCS: G0463

== ENCOUNTER 2023-12-20 08:56 | Outpatient (OUT) | payer BC, MEDICARE, SELFPAY ==
--- NOTE | 2023-12-20 09:13 | XR_ITS ---
The [address] [address] Patient Name: AMARA AGUILAR MRN: [id number] date: 1955 Sex: F Assigned Patient Location: [facility] Current Patient Location: Accession/Order Number: [id number] Exam Date: 12/20/2023 09:05 Report Date: 12/21/2023 06:27 At the request of: MILTON NORMAN Procedure: XR knee LYN 4V EXAMINATION: XR knee LYN 4V HISTORY: Bilateral Knee Pain COMPARISON: No relevant comparison available. FINDINGS: RIGHT FINDINGS: BONES: Slight narrowing of the medial joint space. Tiny degenerative osteophytes along the articular margins of the patella. No fracture, dislocation, or bone lesion. SOFT TISSUES: No visible soft tissue swelling. OTHER: Small joint effusion. LEFT FINDINGS: BONES: Mild narrowing of the medial joint space. Small degenerative osteophytes along the articular margins of the patella and slight irregularity of the articular surface of the patella. SOFT TISSUES: No visible soft tissue swelling. OTHER: Small joint effusion. XR/XR knee LYN 4V IMPRESSION: RIGHT CONCLUSION: Small joint effusion and minimal degenerative joint disease. LEFT CONCLUSION: Small joint effusion and mild degenerative joint disease predominantly involving the anterior compartment. Electronically authenticated by: JOSE MARTIN LOCKETT Date: 12/21/2023 06:27
--- OUTSIDE RECORDS SUMMARY | 2023-12-20 09:19 | XMS_ITS | CCD ---
Author Organization [facility] Inform ion Partnership [facility] Care Team Providers Care Insurance Consultant Name Role Phone CHELY JEFFERSON Unavailable Unavailable GLADIS SOLORZANO Unavailable Unavailable Gladis Solorzano Unavailable Unavailable Unavailable DR CHELY JEFFERSON Admitting Unavailable DR CHELY JEFFERSON Attending Unavailable GLADIS LAW Primary Care Unavailable DR CHELY JEFFERSON Consulting Unavailable DO Gladis Solorzano Primary Care Provider BAL Powers Attending Provider [phone] DO Gladis Solorzano Primary Care Provider DO Gladis Solorzano Attending Provider Chely Jefferson Attending Unavailable Chely Jefferson Referring Unavailable Dr. Gladis Solorzano Primary Care U navailable Gladis Solorzano Admitting Unavailable Gladis Solorzano Attending Unavailable Quintero-Gladis Sofia Primary Care Unavailable Quintero-[place], Gladis Primary Care Unavailable CopRafaela murillo Admitting [...] Drug Class(es) Dates Sig (Normalized) Sig (Original) [id number] 200 actuat albuterol 0.09 mg/actuat metered dose [...] take 1 puff(s) by inhalation once daily uhqpvtgzyve-dgrulmqmp-rurfmbmd (TRELEGY-ELLIPTA) 100-62.5-25 mcg blister with device Inhale [...] n 06-07-2023 MM screening mammo BI w/CAD [facility] [place] [address] Mammography Report Signed Patient: Breanna Aguilar MR#: [id number] : 1955 Acct:[id number] Age/Sex: 67 / F ADM Date: 06/07/23 Loc: [place] Room: Type: [facility] Attending Dr: Gladis Solorzano DO Copies to: [...] Miranda Jr., D.OAngel06/07/2023 11:48 AM Dictation Location: [facility] Transcribed By: [facility] 06/07/23 1148 Dictated By: Kyle Miranda Jr, DO 06/07/23 1147 Signed By: 06/07/23 1148 [facility] Office Visit (Cardiology)on 08-24-2022 Follow-up visit [...] office on annual basis. Chely Jefferson MD, [facility] Surgical History Problems History of [...] negative for complaint. Vitals Vital Signs Recorded: [id number] 08:39AMRecorded: [id number] 08:28AM [id number], LUE, Sitting [id number], LUE, Sitting Heart Rate60, L Radial Height5 ft 6 in Aznwxl155 lb BMI Ocezbxucts13.34 kg/m2 BSA Calculated1.95 Tobacco Useb) No PHQ-2 [...] Screening.on 023 Adult depression screening assessment No [facility] [employer] DO Work Phone: Fall risk assessment a) No falls within the last year [facility] [employer] DO Work Phone: Tobacco use status [facility] b) No [facility] [employer] DO Work Phone: VITAMIN D 25 OHon 07-16-2021 VIT D 25-OH 50.6 ng/mL Normal [facility] Comment on above: Performed By: #### V ITAD #### [facility] [address] [place] [address] Dr. Oralia Valdes VIT D RANGES SEE BELOW Normal [facility] Comment on above: Result Comment: <20 ng/mL Vit D deficient 20 - <30 ng/mL Vit D insufficient 30 - 100 ng/mL Vit D sufficient >100 ng/mL Potential Toxicity Performed By: #### V ITAD #### [facility] [address] [place] [address] Dr. Oralia Valdes Tobacco Screening.on 022 Fall risk assessment a) No falls within the last year [facility] [employer] DO Work Phone: Tobacco use status [facility] b) No [facility] [employer] DO Work Phone: Complete Blood Counton 04-06 Erythrocyte distribution width (RBC) [Ratio] 13.0 % Normal 11.0-15.0 [facility] [employer] Comment on above: Performed By: #### L IPD, VITD, TSH reflex FT4, CBC, CMP #### [facility] [address] [place], [place] [id number] Hematocrit (Bld) [Volume fraction] 37.8 % Normal 35.0-47.0 [facility] [employer] Comment on above: Performed By: #### L IPD, VITD, TSH reflex FT4, CBC, CMP #### [facility] [address] [place], [place] [id number] Hemoglobin (Bld) [Mass/Vol] 12.2 g/dL Normal 11.6-15.5 [facility] Specialist Comment on above: Performed By: #### L IPD, VITD, TSH reflex FT4, CBC, CMP #### [facility] [address] [place], [place] [id number] MCH (RBC) [Entitic mass] 31.1 pg Normal 27.0-33.0 [facility] Specialist Comment on above: Performed By: #### L IPD, VITD, TSH reflex FT4, CBC, CMP #### [facility] [address] [place], [place] [id number] MCHC (RBC) [Mass/Vol] 32.3 g/dL Normal 32.0-36.0 [facility] Specialist Comment on above: Performed By: #### L IPD, VITD, TSH reflex FT4, CBC, CMP #### [facility] [address] [place], [place] [id number] MCV (RBC) [Entitic vol] 96 fL Normal 80-100 [facility] Comment on above: Performed By: #### L IPD, VITD, TSH reflex FT4, CBC, CMP #### [facility] [address] [place], [place] [id number] Platelet mean volume (Bld) [Entitic vol] 10.20 fL Normal 7.50-12.50 [facility] Comment on above: Performed By: #### L IPD, VITD, TSH reflex FT4, CBC, CMP #### [facility] [address] [place], [place] [id number] Platelets (Bld) [#/Vol] 260 10*3/uL Normal 140-400 [facility] Comment on above: Performed By: #### L IPD, VITD, TSH reflex FT4, CBC, CMP #### [facility] [address] [place], [place] [id number] RBC (Bld) [#/Vol] 3.92 10*6/uL Normal 3.90-5.20 [facility] Specialist Comment on above: Performed By: #### L IPD, VITD, TSH reflex FT4, CBC, CMP #### [facility] [address] [place], [place] [id number] RDW-SD 45.7 fL Normal 37.0-50.0 [facility] Comment on above: Performed By: #### L IPD, VITD, TSH reflex FT4, CBC, CMP #### [facility] [address] [place], [place] [id number] WBC (Bld) [#/Vol] 7.3 10*3/uL Normal 3.8-11.0 [facility] [place] [facility] Control Manager Comment on above: Performed By: #### L IPD, VITD, TSH reflex FT4, CBC, CMP #### [facility] [address] [place], [place] [id number] Comprehensive Metabolic Pane [facility] 04-06-2021 Albumin [Mass/Vol] 4.3 g/dL Normal 3.6-5.1 [facility] rn [place] [employer] Control Manager Comment on above: Performed By: #### L IPD, VITD, TSH reflex FT4, CBC, CMP #### [facility] [address] [place], [place] [id number] Albumin/Globulin [Mass ratio] 1.4 {ratio} Normal 1.0-2.5 [facility] Comment on above: Performed By: #### L IPD, VITD, TSH reflex FT4, CBC, CMP #### [facility] [address] [place], [place] [id number] ALP [Catalytic activity/Vol] 72 U/L Normal 35-119 [facility] Comment on above: Performed By: #### L IPD, VITD, TSH reflex FT4, CBC, CMP #### [facility] [address] [place], [place] [id number] ALT [Catalytic activity/Vol] 16 U/L Normal 6-33 [facility] Comment on above: Result Comment: 02/24 Female reference range changed. Performed By: #### L IPD, VITD, TSH reflex FT4, CBC, CMP #### [facility] [address] [place], [place] [id number] Anion gap [Moles/Vol] 17 mmol/L Normal 12-20 [facility] Comment on above: Result Comment: Effmaikol ctive 04/01/2019 reference range changed. Performed By: #### L IPD, VITD, TSH reflex FT4, CBC, CMP #### [facility] [address] [place], [place] [id number] AST [Catalytic activity/Vol] 20 U/L Normal 9-34 [facility] Specialist Comment on above: Performed By: #### L IPD, VITD, TSH reflex FT4, CBC, CMP #### [facility] [address] [place], [place] [id number] Bilirubin [Mass/Vol] 0.33 mg/dL Normal 0.30-1.20 [facility] Specialist Comment on above: Performed By: #### L IPD, VITD, TSH reflex FT4, CBC, CMP #### [facility] [address] [place], [place] [id number] BUN/CREA 17 Ratio Normal 6-22 [facility] Specialist Comment on above: Performed By: #### L IPD, VITD, TSH reflex FT4, CBC, CMP #### [facility] [address] [place], [place] [id number] Calcium [Mass/Vol] 9.3 mg/dL Normal 8.6-10.2 [facility] Comment on above: Performed By: #### L IPD, VITD, TSH reflex FT4, CBC, CMP #### [facility] [address] [place], [place] [id number] Chloride [Moles/Vol] 104 mmol/L Normal 98-107 [facility] Specialist Comment on above: Performed By: #### L IPD, VITD, TSH reflex FT4, CBC, CMP #### [facility] [address] [place], [place] [id number] CO2 [Moles/Vol] 24 mmol/L Normal 20-31 [facility] Specialist Comment on above: Performed By: #### L IPD, VITD, TSH reflex FT4, CBC, CMP #### [facility] [address] [place], [place] [id number] Creatinine [Mass/Vol] 1.1 mg/dL Normal 0.6-1.4 [facility] Specialist Comment on above: Performed By: #### L IPD, VITD, TSH reflex FT4, CBC, CMP #### [facility] [address] [place], [place] [id number] eGFRAA 60 mL/min/1.73m2 Low >60 [facility] Comment on above: Performed By: #### L IPD, VITD, TSH reflex FT4, CBC, CMP #### [facility] [address] [place], [place] [id number] eGFRNAA 50 mL/min/1.73m2 Low >60 [facility] Comment on above: Performed By: #### L IPD, VITD, TSH reflex FT4, CBC, CMP #### [facility] [address] [place], [place] [id number] Globulin (S) [Mass/Vol] 3.0 g/dL Normal 1.9-3.7 [facility] Comment on above: Performed By: #### L IPD, VITD, TSH reflex FT4, CBC, CMP #### [facility] [address] [place], [place] [id number] Glucose [Mass/Vol] 94 mg/dL Normal 65-99 [facility] Business Control Manager Comment on above: Result Comment: For FASTING Glucose --- ADA reference ranges: Normal 65-99 mg/dl Prediabetes 100-125 Diabetes >/= 126 Performed By: #### L IPD, VITD, TSH reflex FT4, CBC, CMP #### [facility] [address] [place], [place] [id number] Potassium [Moles/Vol] 4.5 mmol/L Normal 3.5-5.5 [facility] Comment on above: Performed By: #### L IPD, VITD, TSH reflex FT4, CBC, CMP #### [facility] [address] [place], [place] [id number] Protein [Mass/Vol] 7.3 g/dL Normal 6.1-8.1 Mayra ty [place] [facility] Control Manager Comment on above: Performed By: #### L IPD, VITD, TSH reflex FT4, CBC, CMP #### [facility] [address] [place], [place] [id number] Sodium [Moles/Vol] 140 mmol/L Normal 135-146 Mayra ty [place] [facility] Control Manager Comment on above: Performed By: #### L IPD, VITD, TSH reflex FT4, CBC, CMP #### [facility] [address] [place], [place] [id number] Urea nitrogen [Mass/Vol] 18 mg/dL Normal 7-25 [facility] Specialist Comment on above: Performed By: #### L IPD, VITD, TSH reflex FT4, CBC, CMP #### [facility] [address] [place], [place] [id number] Lipid Panelon 04-06-2021 Cholesterol [Mass/Vol] 236 mg/dL High 125-200 [facility] Comment on above: Order Comment: FASTI NG-But DO drink water prior to going to the lab Result Comment: Low risk < 200mg/dL Borderline risk 201-239 mg/dl High risk > or equal to 240 Performed By: #### L IPD, VITD, TSH reflex FT4, CBC, CMP #### [facility] [address] [place], [place] [id number] Cholesterol in HDL [Mass/Vol] 71 mg/dL Normal >40 [facility] Comment on above: Order Comment: FASTI NG-But DO drink water prior to going to the lab Result Comment: High Cardiovascular Risk HDL <40 mg/dL Low Cardiovascular Risk HDL > or equal to 60 mg/dl Performed By: #### L IPD, VITD, TSH reflex FT4, CBC, CMP #### [facility] [address] [place], [place] [id number] Cholesterol in LDL [Mass/Vol] 140 mg/dL Normal [facility] Specialist Comment on above: Order Comment: [...] FT4, CBC, CMP #### [facility] [address] [place], [place] [id number] Cholesterol in VLDL [Mass/Vol] 25 mg/dL Normal [facility] Specialist Comment on above: Order Comment: FASTI NG-But DO drink water prior to going to the lab Performed By: #### L IPD, VITD, TSH reflex FT4, CBC, CMP #### [facility] [address] [place], [place] [id number] Cholesterol.total/C holesterol in HDL [Mass ratio] 3 {ratio} Normal [facility] Comment on above: Order Comment: FASTI NG-But DO drink water prior to going to the lab Performed By: #### L IPD, VITD, TSH reflex FT4, CBC, CMP #### [facility] [address] [place], [place] [id number] Triglyceride [Mass/Vol] 123 mg/dL Normal 30-150 [facility] Specialist Comment on above: Order Comment: FASTI NG-But DO drink water prior to going to the lab Result Comment: TRIG ATPIII CLASSIFICATIONS TRIG less than 150 mg/dl Normal TRIG 150-199 mg/dl Borderline High TRIG 200-500 mg/dl High TRIG greather than 500 mg/dl Very High Performed By: #### L IPD, VITD, TSH reflex FT4, CBC, CMP #### [facility] [address] [place], [place] [id number] Microalbumin (with Creat)on 04-06-2021 mALB 8.3 mg/dL Normal [facility] Comment on above: Result Comment: mALB reference range not established. Performed By: #### m ALBC #### [facility] [address] [place], [place] [id number] mALB/Creat Ratio 107.8 MCG/MG Normal [facility] Comment on above: Result Comment: The ADA (Diabetes Care 26:S94-S98, 2003) defines abnormalities in Albumin excretion as follows: Category Result (MCG/MG Creatinine) Normal <30 Microalbuminuria 30-299 Clinical Albuminuria > or = 300 Performed By: #### m ALBC #### [facility] [address] [place], [place] [id number] UCREA 77 mg/dL Normal 28-217 [facility] Specialist Comment on above: Performed By: #### m ALBC #### [facility] [address] [place], [place] [id number] TSH w/ Reflex to Free T4on 0 04-06-2021 TSH 1.750 uIU/mL Normal 0.400-4.500 [facility] Business Control Manager Comment on above: Performed By: #### L IPD, VITD, TSH reflex FT4, CBC, CMP #### [facility] [address] [place], [place] [id number] Vitamin B12on 04-06-2021 Cobalamin (Vitamin B12) [Mass/Vol] 811 pg/mL Normal 211-946 [facility] Comment on above: Performed By: #### B 12 #### [facility] [address] [place], [place] [id number] Vitamin D 25-OHon 04-06-2021 VIT D 25 OH 26 ng/ml Low >29 [facility] Comment on above: Result Comment: Amada min D Status Deficiency <20 ng/mL Insufficiency 20-29 ng/mL Optimal 30-100 ng/mL Possible Toxicity >=150 ng/mL Performed By: #### L IPD, VITD, TSH reflex FT4, CBC, CMP #### [facility] [address] [place], [place] [id number] Outside Records Officeon Outside Records Office [id number]# 1.00CD:127 Normal [facility] Referrals Officeon Referrals Office [id number]# 1.00CD:127 Normal [facility] Creatinineon 04-05-2017 Creatinine 1.27 mg/dL High 0.50-1.05 [facility] Comment on above: Performed By: #### 1 [id number] ####[facility] [address] [place] [address] eGFR (MDRD) 43 mL/min/{1.73_m2} Normal [facility] Comment on above: Result Comment: Inte rpretation for Chronic Kidney Disease:Stages 1&2 >60 Healthy or potential kidney damage.Mild decrease of GFR.Stage 3 30-59 Moderate decrease of GFR.Stage 4 15-29 Severe decrease of GFR.Stage 5 <15 Kidney failure or on dialysis. Performed By: #### 1 [id number] ####[facility] [address] [place] [address] Electrolyte Panelon 01-10-20 18 Anion gap 11 mmol/L Normal 10-20 [facility] Healthcare Comment on above: Performed By: #### 1 [id number] ####[facility] [id number] [facility] [place] [address] Bicarbonate (HCO3) 30 mmol/L Normal 21-32 [facility] Comment on above: Performed By: #### 1 [id number] ####[facility] [address] [facility] [place] [address] Chloride 101 mmol/L Normal 98-107 [facility] Healthcare Comment on above: Performed By: #### 1 [id number] ####[facility] [address] [facility] [place] [address] Potassium molar conc 4.4 mmol/L Normal 3.5-5.1 [facility] Comment on above: Performed By: #### 1 [id number] ####[facility] [address] [place] [address] Sodium 138 mmol/L Normal 136-145 [facility] Comment on above: Performed By: #### 1 [id number] ####[facility] [address] [facility] [place] [address] Urea Nitrogenon 04-05-2017 Urea nitrogen 20 mg/dL Normal 6-23 [facility] are Comment on above: Performed By: #### 1 [id number] ####[facility] [address] [place] [address] Vital Signs Date Time Vital Sign Value Performing Clinician Keshiai joel 08-29-2023 12:55-0400 Body height 167.6 cm Chely Jefferson MD Work Phone: [facility] 08-29-2023 12:55-0400 Body mass index (BMI) [Ratio] 29.86 kg/m2 Chely Jefferson MD Work Phone: [facility] 08-29-2023 12:55-040 Body weight 83.92 kg Chely Jefferson MD Work Phone: [facility] 08-29-2023 12:55-0400 Diastolic blood pressure 68 mm[Hg] Chely Jefferson MD Work Phone: [facility] 08-29-2023 12:55-0400 Heart rate 56 /min Chely Jefferson MD Work Phone: [facility] 08-29-2023 12:55-0400 Systolic blood pressure 118 mm[Hg] Chely Jefferson MD Work Phone: [facility] 08-24-2022 08:39-0400 Diastolic blood pressure 80 mm[Hg] Gladis Lerma Quintero[place] Work Phone: [facility] [address] DO Work Phone: 08-24-2022 08:39-0400 Systolic blood pressure 136 mm[Hg] Gladis Florentin [place] Work Phone: [facility] [address] DO Work Phone: 08-24-2022 08:28-0400 Body height 167.64 cm Gladis Florentin [place] Work Phone: [facility] [address] DO Work Phone: 08-24-2022 08:28-0400 Body mass index (BMI) [Ratio] 30.34 kg/m2 Gladis Florentin [place] Work Phone: [facility] [address] DO Work Phone: 08-24-2022 08:28-0400 Body surface area Derived from formula 1.95 m2 Gladis Florentin [place] Work Phone: [facility] [address] DO Work Phone: 08-24-2022 08:28-0400 Body weight 85.28 kg Gladis Florentin [place] Work Phone: [facility] [address] DO Work Phone: 08-24-2022 08:28-0400 Diastolic blood pressure 78 mm[Hg] Gladis Lerma [place] Work Phone: [facility] [address] DO Work Phone: 08-24-2022 08:28-0400 Heart rate 60 /min Gladis Florentin [place] Work Phone: [facility] [address] DO Work Phone: 08-24-2022 08:28-0400 Systolic blood pressure 146 mm[Hg] Gladis Florentin [place] Work Phone: [facility] [address] DO Work Phone: 04-26-2021 14:04-0500 Body height 167.64 cm Gladis Florentin [place] Work Phone: [facility] [address] DO Work Phone: 04-26-2021 14:04-0500 Body mass index (BMI) [Ratio] 28.65 kg/m2 Gladis Florentin [place] Work Phone: [facility] [address] DO Work Phone: 04-26-2021 14:04-0500 Body surface area Derived from formula 1.9 m2 Gladis D [place] Work Phone: [facility] [address] DO Work Phone: 04-26-2021 14:04-0500 Body weight 80.51 kg Gladis Florentin [place] Work Phone: [facility] [address] DO Work Phone: 04-26-2021 14:04-0500 Diastolic blood pressure 63 mm[Hg] Gladis Florentin [place] Work Phone: [facility] [address] DO Work Phone: 04-26-2021 14:04-0500 Heart rate 66 /min Gladis Florentin [place] Work Phone: [facility] [address] DO Work Phone: 04-26-2021 14:04-0500 Systolic blood pressure 117 mm[Hg] Gladis D [place] Work Phone: [facility] [address] DO Work Phone: Encounters Encounter Date Encounter Type Care Provider Facility Start: 11-07-2023 End: 11-07-2023 ambulatory GLADIS D QUINTERO-EMERY Not Available Start: 08-29-2023 End: 08-29-2023 Office outpatient visit 25 minutes Chely Jefferson MD Work Phone: [facility] Comment on above: Essential hypertensi on, benign; Stage 3 chronic kidney disease, unspecified whether stage 3a or 3b CKD (Multi); Chronic obstructive pulmonary disease, unspecified COPD type ([facility]); BMI 29.0-29.9,adult; Former smoker Start: 08-29-2023 End: 08-29-2023 ambulatory CHELY Carcamo [facility] Ambulatory Start: 06-07-2023 End: 06-07-2023 ambulatory Gladis Quintero-[place]osho Facility:[facility] Start: 06-07-2023 End: 06-07-2023 ambulatory DO Gladis Quintero-[place] Work Phone: [facility] Work Phone: Start: 06-07-2023 End: 06-07-2023 Patient encounter procedure DO Gladis Quintero-[place] Work Phone: [facility] Work Phone: Start: 05-09-2023 End: 05-09-2023 ambulatory GLADIS D QUINTERO-EMERY Not Available Start: 12-19-2022 End: 12-20-2022 ambulatory Gladis Quintero-[place] Facility:[facility] Start: 08-24-2022 Office outpatient vi sit 25 minutes Gladis D Qu[place] Work Phone: [facility] [address] DO Work Phone: Start: 08-24-2022 ambulatory Chely Jefferson Facility : Start: 07-14-2022 Rx Renewal Gladis D Weave r-[place] Work Phone: [facility] [address] DO Work Phone: Start: 05-23-2022 End: 05-23-2022 ambulatory DO Gladis Quintero-[place]osho Work Phone: [facility] Work Phone: Start: 05-23-2022 End: 05-23-2022 Patient encounter procedure DO Gladis Quintero-[place] Work Phone: [facility] Work Phone: Start: 04-14-2022 Rx Renewal Gladis D Weave [place] Work Phone: [facility] [address] DO Work Phone: Start: 12-22-2021 End: 12-22-2021 ambulatory DO Gladis Quintero-[place] Work Phone: [facility] Work Phone: Start: 12-22-2021 End: 12-22-2021 Patient encounter procedure DO Gladis Quintero-[place] Work Phone: [facility] Start: 07-21-2021 Encounter for genera l adult medical examination without abnormal findings DR CHELY JEFFERSON [facility] Start: 07-16-2021 End: 07-17-[address] CHELY JEFFERSON Facility:[facility] Start: 07-16-2021 End: 07-17-2021 Encounter for general adult medical examination without abnormal findings DR CHELY JEFFERSON Facility:[facility] Start: 04-26-2021 Office outpatient vi sit 25 minutes Gladis D Quintero[place] Work Phone: [facility] [address] DO Work Phone: Start: 03-01-2021 Rx Renewal Chely Jefferson MD Work Phone: [facility] [address] DO Work Phone: Start: 04-05-2017 Ambulatory CHELY JEFFERSON Facility :[id number] Procedures Date Procedure Procedure Detail Performing Clinician Start: 06-07-2023 End: 06-07-2023 Screening mammography of bilateral breasts DO Gladis Uqintero-Neosho Work Phone: Start: 05-23-2022 Screening mammograph y of bilateral breasts DO Gladis [place] Work Phone: Start: 12-22-2021 Radionuclide three-p hase bone study DO Gladis Quintero[place] Work Phone: Cataract surgery Gladis D We aver[place] Work Phone: section Gladis D [place] Work Phone: Ligation of fallopian tube S kylie D [place] Work Phone: Procedure on back Gladis D W e[place] Work Phone: Tooth extraction Gladis D We [place] Work Phone: Total colonoscopy Gladis D W [place] Work Phone: Plan of Treatment Date Care Activity Detail Author Start: 08-27-2024 End: 08-27-2024 Patient encounter procedure 08/27/2024 10:00 AM EDT Office Visit [facility] [address] [place] [address] Chely Jefferson [facility] [address] [facility] [address] [place] [address] [facility] Start: 06-06-2024 Screening for malignant neoplasm of breast Mammogram [facility] Start: 11-26-2023 Influenza vaccination Influenza Vaccine (Season Ended) [facility] Start: 08-29-2023 FUV, Provider: Chely Jefferson, Status: Pen, Time: 8:30 AM FUV, Provider: Chely Jefferson, Status: Pen, Time: 8:30 AM [facility] [address] DO Work Phone: Start: 12-01-2022 DTaP/Tdap/Td Vaccines (1 - Tdap) DTaP/Tdap/Td Vaccines (1 - Tdap) [facility] Start: 11-25-2022 COVID-19 Vaccine ( season) COVID-19 Vaccine ( season) [facility] Start: 08-24-2022 FUV, Provider: Chely Jefferson, Status: Pen, Time: 8:30 AM FUV, Provider: Chely Jefferson, Status: Pen, Time: 8:30 AM [facility] 600 DO Work Phone: Start: 04-27-2022 FUV, Provider: Chely Jefferson, Status: Pen, Time: 8:30 AM FUV, Provider: Chely Jefferson, Status: Pen, Time: 8:30 AM [facility] 250 DO Work Phone: Start: 03-31-2021 FUV, Provider: Chely Jefferson, Status: Pen, Time: 8:30 AM FUV, Provider: Chely Jefferson, Status: Pen, Time: 8:30 AM [facility] 250 DO Work Phone: Start: 2015 RSV patients and/or patients aged 60+ years (1 - 1-dose 60+ series) RSV patients and/or patients aged 60+ years (1 - 1-dose 60+ series) [facility] Start: 09-02-2005 Zoster Vaccines (1 of 2) Zoster Vaccines (1 of 2) [facility] Start: 09-02-1973 Diabetes mellitus screening Diabetes Screening [facility] Start: 09-02-1973 Hepatitis C screening Hepatitis C Screening [facility] Start: 09-02-1961 Pneumococcal Vaccine: 65+ Years (1 of 2 - PCV) Pneumococcal Vaccine: 65+ Years (1 of 2 - PCV) [facility] Start: 1955 Lipid panel Lipid Panel [facility] Start: 1955 Screening for malignant neoplasm of colon [facility] Start: 1955 Screening for osteoporosis Bone Density Scan [facility] Start: 1955 Yearly Adult Physical Yearly Adult Physical [facility] [place] Payers Date Payer Category Payer Unknown 2023 Unknown [id number] 2023 Medicare MEDICARE MEDICAR E PART A AND B [id number] 2023-Present [address] [place] [address] [id number] 2023 Medicare [id number] 2022 Self-pay [id number] 2021 Unknown [id number] 1959 Unknown [id number] 1955 Unknown [id number] 1955 Unknown [id number] 1955 Unknown [id number] 1955 Unknown [id number] 1955 Unknown [id number] Private Health Insurance [facility] [id number] Unknown [id number] Unknown [id number] Unknown [id number] Social History Date Type Detail Facility Start: 08-29-2023 Alcohol use Alcohol use [facility] 250 DO Work Phone: Comment on above: 4 cups of coffee bianca ly.; quit 2005; Start: 1955 Sex Assigned At Female F [facility] Start: 12-19-2022 End: 05-16-2023 Tobacco smoking status NHIS Ex-smoker (finding) [facility] History of tobacco use Current smoker [facility] Work Phone: History of tobacco use Cigarette Smoker [facility] Work Phone: Start: 08-29-2023 Alcoholic beverage intake Current drinker of alcohol (finding) [facility] Work Phone: Start: 08-29-2023 Tobacco use panel [facility] Work Phone: Start: 08-29-2023 Alcohol Comment rarely [facility] Work Phone: Start: 1955 Sex assigned at Not on file [facility] Work Phone: Start: 08-19-2023 End: 08-29-2023 Exposure to SARS-CoV-2 (event) Not sure [facility] History of Present illness Narrative 08-29-2023 [...] office on annual basis. Chely Jefferson MD, [facility] Review of Systems Cardiovascular: Positive [...] syrup, Take by mouth., Disp: , Rfl: acoumtzypii-gzatktuwi-wlbxdhnw (TRELEGY-ELLIPTA) 100-62.5-25 mcg blister with device, Inhale [...] discussion and plan. documented in this encounter [facility] Work Phone: Instructions 08-29-2023 Patient InstructionsAttachments [...] cannot be sent through Care Everywhere.Mediterranean Diet (Uzbek)documented in this encounter [facility] Work Phone: Evaluation note 08-29-2023 Note Date & Type Note Facility 08-29-2023 Evaluation note Diagnosis Essential hypertension, benign Stage 3 chronic kidney disease, unspecified whether stage 3a or 3b CKD (Multi) Chronic obstructive pulmonary disease, unspecified COPD type (Multi) BMI 29.0-29.9,adult Former smoker Personal history of tobacco use, presenting hazards to health documented in this encounter [facility] Work Phone: Evaluation note Note Date & Type Note Facility [facility] Reason for referral (narrative) Consultation (Routine) - Authorized Note Date & Type Note Facility Reason for referral (narrati ve) Specialty Diagnoses / Procedures Referred By Contac t Referred To Contact Cardiology Diagnoses Essential hypertension, benign Procedures Follow Up In Cardiology Chely Jefferson MD [address], [address] [address] Chely Jefferson MD [address], [facility] [address] [place] [address] Referral ID Status Reason Start Date Expiration Date V isits Requested Visits Authorized [id number] Authorized 08/29/2023 08/28/2024 1 1 [facility] Work Phone: Summary Purpose Family History [...] section and content) DATE CREATED AUTHOR 09/19/2017 [facility] DATE CREATED AUTHOR AUTHOR'S ORGANIZ ATION 06/22/2020 [facility] DATE CREATED AUTHOR AUTHOR'S ORGANIZ ATION 04/07/2021 [facility] dical Specialist DATE CREATED AUTHOR AUTHOR'S ORGANIZ ATION 07/24/2021 [facility] DATE CREATED AUTHOR AUTHOR'S ORGANIZ ATION 09/06/2022 [employer] DATE CREATED AUTHOR AUTHOR'S ORGANIZ ATION 09/06/2022 [facility] DATE CREATED AUTHOR AUTHOR'S ORGANIZ ATION 06/10/2023 [facility] DATE CREATED AUTHOR AUTHOR'S ORGANIZ ATION 08/30/2023 [facility] DATE CREATED AUTHOR AUTHOR'S ORGANIZ ATION 11/08/2023 [facility] dical Specialists EPIC Care Teams (unrecognized [...] June 07, 2023 End: June 07, 2023 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 [facility] [facility]. provides no warranty or guarantee of the accuracy or completeness of information in this document.
== END 2023-12-20 08:57 | disposition home or self-care (01) ==
LOC: RAD 08:58
PROVIDERS: PCP Internal Medicine; Visit Provider Nurse Practitioner
DX: M25.562 Pain in left knee (principal); M25.561 Pain in right knee; M17.0 Bilateral primary osteoarthritis of knee; M25.462 Effusion, left knee; M25.461 Effusion, right knee
CPT/HCPCS: 73564

== ENCOUNTER 2023-12-25 11:22 | Outpatient (OUT) | payer BC, MEDICARE, SELFPAY ==
--- OUTSIDE RECORDS SUMMARY | 2023-12-25 11:26 | XMS_ITS | CCD ---
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 Gladis Solorzano Primary Care U navailable Gladis Solorzano Admitting Unavailable QuinteroGladis Brunner Attending Unavailable Quintero[place], Gladis Primary Care Unavailable Quintero-[place], Gladis Primary Care Unavailable CopRafaela murillo Admitting Unavailable Rafaela Lopez Attending Unavailable DO Gladis Solorzano Primary Care Provider DO Gladis Solorzano Attending Provider [phone] Gladis Solorzano DO Primary Care Provi mitchell CHELY JEFFERSON Attending Unavailable GLADIS SOLORZANO Primary Care Unava ilable GLADIS SOLORZANO Attending Unavailab le GLADIS SOLORZANO Referring Unavailab GLADIS Cowan Attending GLADIS Wade Referring Unavailab jose Pappas MD, Megan Mccollum Attending Unavailable Elyse SHIPLEY, Megan Mccollum Attending Unavailable Medications Current Medications Medication Drug Class(es) Dates Sig (Normalized) Sig (Original) [id number] 200 actuat albuterol 0.09 mg/actuat metered dose [...] take 1 puff(s) by inhalation once daily ohbytrfwqhl-mceowtxkf-tejcvvbd (TRELEGY-ELLIPTA) 100-62.5-25 mcg blister with device Inhale [...] MM screening mammo BI w/CAD [facility] [address] [place] [id number] Mammography Report Signed Patient: Breanna Aguilar MR#: [id number] 75 : 1955 Acct:[id number] Age/Sex: 67 / F ADM Date: 06/07/23 Loc: [place] Room: Type: [facility] Attending Dr: Gladis Solorzano DO Copies to: Gladis Sloorzano DO Ordering Provider: Gladis Solorzano DO Date of Service: 06/07/23 MM/MM screening mammo BI w/CAD: SCREENING CLINICAL DATA: Screening for malignancy. SCREENING MAMMOGRAM - FULL FIELD DIGITAL WITH TOMOSYNTHESIS AND CAD COMPARISON:Mammograms dating back to 2018 Tomosynthesis craniocaudal and mediolateral oblique views of [...] mammogram. Impression dictated by: Kyle Miranda Jr., D.O.06/07/2023 11:48 AM Dictation Location: [facility] Transcribed By: [facility] 06/07/23 1148 Dictated By: Kyle Miranda Jr, DO 06/07/23 1147 Signed By: 06/07/23 1148 [facility] Office Visit (Cardiology)on 08-24-2022 Follow-up visit Diagnoses/Problems Assessed Essential hypertension, benign (401.1) (I10) Chronic kidney disease, stage 3 (585.3) (N18.30) COPD (chronic obstructive pulmonary disease) (496) (J44.9) Class 1 obesity with body mass index (BMI) of 30.0 to 30.9 in adult (278.00,V85.30) (E66.9,Z68.30) Former smoker (V15.82) (Z87.891) quit 2006 Orders Class 1 obesity with body mass [...] office on annual basis. Chely Jefferson MD, [facility] Surgical History Problems History of Back surgery [...] negative for complaint. Vitals Vital Signs Recorded: [id number] 08:39AMRecorded: [id number] 08:28AM Dfiagdat299001, LUE, Sitting Ejjzqdoep6271, LUE, Sitting Heart Rate60, L Radial Height5 ft 6 in Vsfepz779 lb BMI Hmvnjeimee98.34 kg/m2 BSA Calculated1.95 Tobacco Useb) No PHQ-2 [...] Screening.on 023 Adult depression screening assessment No [facility] [employer] 250 DO Work Phone: Fall risk assessment a) No falls within the last year [facility] [employer] 250 DO Work Phone: Tobacco use status [facility] b) No [facility] [employer] 250 DO Work Phone: VITAMIN D 25 OHon 07-16-2021 VIT D 25-OH 50.6 ng/mL Normal [facility] Comment on above: Performed By: #### V ITAD #### [facility] [address] [place] [address] Dr. Oralia Valdes VIT D RANGES SEE BELOW Normal [facility] Comment on above: Result Comment: <20 ng/mL Vit D deficient 20 - <30 ng/mL Vit D insufficient 30 - 100 ng/mL Vit D sufficient >100 ng/mL Potential Toxicity Performed By: #### V ITAD #### [facility] [address] [place] [address] Dr. Oralia Valdes Tobacco Screening.on 022 Fall risk assessment a) No falls within the last year [facility] [employer] 250 DO Work Phone: Tobacco use status [facility] b) No [facility] [employer] 250 DO Work Phone: Complete Blood Counton 04-06 Erythrocyte distribution width (RBC) [Ratio] 13.0 % Normal 11.0-15.0 [facility] [employer] Comment on above: Performed By: #### L IPD, VITD, TSH reflex FT4, CBC, CMP #### [facility] [address] [place], [place] [id number] Hematocrit (Bld) [Volume fraction] 37.8 % Normal 35.0-47.0 [facility] Comment on above: Performed By: #### L IPD, VITD, TSH reflex FT4, CBC, CMP #### [facility] [address] [place], [place] [id number] Hemoglobin (Bld) [Mass/Vol] 12.2 g/dL Normal 11.6-15.5 [facility] Comment on above: Performed By: #### L IPD, VITD, TSH reflex FT4, CBC, CMP #### [facility] [address] [place], [place] [id number] MCH (RBC) [Entitic mass] 31.1 pg Normal 27.0-33.0 [facility] Comment on above: Performed By: #### L IPD, VITD, TSH reflex FT4, CBC, CMP #### [facility] [address] [place], [place] [id number] MCHC (RBC) [Mass/Vol] 32.3 g/dL Normal 32.0-36.0 [facility] Comment on above: Performed By: #### L IPD, VITD, TSH reflex FT4, CBC, CMP #### [facility] [address] [place], [place] [id number] MCV (RBC) [Entitic vol] 96 fL Normal 80-100 [facility] Comment on above: Performed By: #### L IPD, VITD, TSH reflex FT4, CBC, CMP #### [facility] [address] [place], [place] [id number] Platelet mean volume (Bld) [Entitic vol] 10.20 fL Normal 7.50-12.50 [facility] Comment on above: Performed By: #### L IPD, VITD, TSH reflex FT4, CBC, CMP #### [facility] [address] [place], [place] [id number] Platelets (Bld) [#/Vol] 260 10*3/uL Normal 140-400 [facility] Special[facility] Comment on above: Performed By: #### L IPD, VITD, TSH reflex FT4, CBC, CMP #### [facility] [address] [place], [place] [id number] RBC (Bld) [#/Vol] 3.92 10*6/uL Normal 3.90-5.20 [facility] [employer] Comment on above: Performed By: #### L IPD, VITD, TSH reflex FT4, CBC, CMP #### [facility] [address] [place], [place] [id number] RDW-SD 45.7 fL Normal 37.0-50.0 [facility] [employer] Comment on above: Performed By: #### L IPD, VITD, TSH reflex FT4, CBC, CMP #### [facility] [address] [place], [place] [id number] WBC (Bld) [#/Vol] 7.3 10*3/uL Normal 3.8-11.0 [facility] [employer] Comment on above: Performed By: #### L IPD, VITD, TSH reflex FT4, CBC, CMP #### [facility] [address] [place], [place] [id number] Comprehensive Metabolic [facility] 04-06-2021 Albumin [Mass/Vol] 4.3 g/dL Normal 3.6-5.1 [facility] [employer] Comment on above: Performed By: #### L IPD, VITD, TSH reflex FT4, CBC, CMP #### [facility] [address] [place], [place] [id number] Albumin/Globulin [Mass ratio] 1.4 {ratio} Normal 1.0-2.5 [facility] [employer] Comment on above: Performed By: #### L IPD, VITD, TSH reflex FT4, CBC, CMP #### [facility] [address] [place], [place] [id number] ALP [Catalytic activity/Vol] 72 U/L Normal 35-119 [facility] [employer] Techn[employer] Comment on above: Performed By: #### L IPD, VITD, TSH reflex FT4, CBC, CMP #### [facility] [address] [place], [place] [id number] ALT [Catalytic activity/Vol] 16 U/L Normal 6-33 [facility] [employer] Comment on above: Result Comment: 02/24 Female reference range changed. Performed By: #### L IPD, VITD, TSH reflex FT4, CBC, CMP #### [facility] [address] [place], [place] [id number] Anion gap [Moles/Vol] 17 mmol/L Normal 12-20 [facility] Comment on above: Result Comment: Effe ctive 04/01/2019 reference range changed. Performed By: #### L IPD, VITD, TSH reflex FT4, CBC, CMP #### [facility] [address] [place], [place] [id number] AST [Catalytic activity/Vol] 20 U/L Normal 9-34 [facility] Comment on above: Performed By: #### L IPD, VITD, TSH reflex FT4, CBC, CMP #### [facility] [address] [place], [place] [id number] Bilirubin [Mass/Vol] 0.33 mg/dL Normal 0.30-1.20 [facility] Comment on above: Performed By: #### L IPD, VITD, TSH reflex FT4, CBC, CMP #### [facility] [address] [place], [place] [id number] BUN/CREA 17 Ratio Normal 6-22 [facility] Comment on above: Performed By: #### L IPD, VITD, TSH reflex FT4, CBC, CMP #### [facility] [address] [place], [place] [id number] Calcium [Mass/Vol] 9.3 mg/dL Normal 8.6-10.2 [facility] Comment on above: Performed By: #### L IPD, VITD, TSH reflex FT4, CBC, CMP #### [facility] [address] [place], [place] [id number] Chloride [Moles/Vol] 104 mmol/L Normal 98-107 [facility] Comment on above: Performed By: #### L IPD, VITD, TSH reflex FT4, CBC, CMP #### [facility] [address] [place], [place] [id number] CO2 [Moles/Vol] 24 mmol/L Normal 20-31 [facility] Comment on above: Performed By: #### L IPD, VITD, TSH reflex FT4, CBC, CMP #### [facility] [address] [facility] [place] [id number] Creatinine [Mass/Vol] 1.1 mg/dL Normal 0.6-1.4 [facility] [employer] Comment on above: Performed By: #### L IPD, VITD, TSH reflex FT4, CBC, CMP #### [facility] [address] [place], [place] [id number] eGFRAA 60 mL/min/1.73m2 Low >60 [facility] [employer] Comment on above: Performed By: #### L IPD, VITD, TSH reflex FT4, CBC, CMP #### [facility] [address] [place], [place] [id number] eGFRNAA 50 mL/min/1.73m2 Low >60 [facility] [employer] Comment on above: Performed By: #### L IPD, VITD, TSH reflex FT4, CBC, CMP #### [facility] [address] [place], [place] [id number] Globulin (S) [Mass/Vol] 3.0 g/dL Normal 1.9-3.7 [facility] [employer] Comment on above: Performed By: #### L IPD, VITD, TSH reflex FT4, CBC, CMP #### [facility] [address] [place], [place] [id number] Glucose [Mass/Vol] 94 mg/dL Normal 65-99 [facility] Audio Video Technician Comment on above: Result Comment: For FASTING Glucose --- ADA reference ranges: Normal 65-99 mg/dl Prediabetes 100-125 Diabetes >/= 126 Performed By: #### L IPD, VITD, TSH reflex FT4, CBC, CMP #### [facility] [address] [place], [place] [id number] Potassium [Moles/Vol] 4.5 mmol/L Normal 3.5-5.5 [facility] Audio Video Techn[employer] Comment on above: Performed By: #### L IPD, VITD, TSH reflex FT4, CBC, CMP #### [facility] [address] [place], [place] [id number] Protein [Mass/Vol] 7.3 g/dL Normal 6.1-8.1 [facility] Audio Video Technician Comment on above: Performed By: #### L IPD, VITD, TSH reflex FT4, CBC, CMP #### [facility] [address] [place], [place] [id number] Sodium [Moles/Vol] 140 mmol/L Normal 135-146 [facility] Comment on above: Performed By: #### L IPD, VITD, TSH reflex FT4, CBC, CMP #### [facility] [address] [place], [place] [id number] Urea nitrogen [Mass/Vol] 18 mg/dL Normal 7-25 [facility] Special[facility] Comment on above: Performed By: #### L IPD, VITD, TSH reflex FT4, CBC, CMP #### [facility] [address] [place], [place] [id number] Lipid Panelon 04-06-2021 Cholesterol [Mass/Vol] 236 mg/dL High 125-200 [facility] Comment on above: Order Comment: FASTI NG-But DO drink water prior to going to the lab Result Comment: Low risk < 200mg/dL Borderline risk 201-239 mg/dl High risk > or equal to 240 Performed By: #### L IPD, VITD, TSH reflex FT4, CBC, CMP #### [facility] [address] [place], [place] [id number] Cholesterol in HDL [Mass/Vol] 71 mg/dL Normal >40 [facility] Specialist Comment on above: Order Comment: FASTI NG-But DO drink water prior to going to the lab Result Comment: High Cardiovascular Risk HDL <40 mg/dL Low Cardiovascular Risk HDL > or equal to 60 mg/dl Performed By: #### L IPD, VITD, TSH reflex FT4, CBC, CMP #### [facility] [address] [place], [place] [id number] Cholesterol in LDL [Mass/Vol] 140 mg/dL Normal [facility] Comment on above: Order Comment: FASTI NG-But [...] FT4, CBC, CMP #### [facility] [address] [place], [place] [id number] Cholesterol in VLDL [Mass/Vol] 25 mg/dL Normal [facility] Comment on above: Order Comment: FASTI NG-But DO drink water prior to going to the lab Performed By: #### L IPD, VITD, TSH reflex FT4, CBC, CMP #### [facility] [address] [place], [place] [id number] Cholesterol.total/C holesterol in HDL [Mass ratio] 3 {ratio} Normal [facility] Comment on above: Order Comment: FASTI NG-But DO drink water prior to going to the lab Performed By: #### L IPD, VITD, TSH reflex FT4, CBC, CMP #### [facility] [address] [place], [place] [id number] Triglyceride [Mass/Vol] 123 mg/dL Normal 30-150 [facility] Comment on above: Order Comment: FASTI NG-But DO drink water prior to going to the lab Result Comment: TRIG ATPIII CLASSIFICATIONS TRIG less than 150 mg/dl Normal TRIG 150-199 mg/dl Borderline High TRIG 200-500 mg/dl High TRIG greather than 500 mg/dl Very High Performed By: #### L IPD, VITD, TSH reflex FT4, CBC, CMP #### [facility] [address] [place], [place] [id number] Microalbumin (with Creat)on 04-06-2021 mALB 8.3 mg/dL Normal [facility] Comment on above: Result Comment: mALB reference range not established. Performed By: #### m ALBC #### [facility] [address] [place], [place] [id number] mALB/Creat Ratio 107.8 MCG/MG Normal [facility] Comment on above: Result Comment: The ADA (Diabetes Care 26:S94-S98, 2003) defines abnormalities in Albumin excretion as follows: Category Result (MCG/MG Creatinine) Normal <30 Microalbuminuria 30-299 Clinical Albuminuria > or = 300 Performed By: #### m ALBC #### [facility] [address] [place], [place] [id number] UCREA 77 mg/dL Normal 28-217 [facility] Specialist Comment on above: Performed By: #### m ALBC #### [facility] [address] [place], [place] [id number] TSH w/ Reflex to Free T4on 0 04-06-2021 TSH 1.750 uIU/mL Normal 0.400-4.500 [facility] Audio Video Technician Comment on above: Performed By: #### L IPD, VITD, TSH reflex FT4, CBC, CMP #### [facility] [address] [place], [place] [id number] Vitamin B12on 04-06-2021 Cobalamin (Vitamin B12) [Mass/Vol] 811 pg/mL Normal 211-946 [facility] Audio Video Techn[employer] Comment on above: Performed By: #### B 12 #### [facility] [address] [place], [place] [id number] Vitamin D 25-OHon 04-06-2021 VIT D 25 OH 26 ng/ml Low >29 [facility] Audio Video Technician Comment on above: Result Comment: Amada min D Status Deficiency <20 ng/mL Insufficiency 20-29 ng/mL Optimal 30-100 ng/mL Possible Toxicity >=150 ng/mL Performed By: #### L IPD, VITD, TSH reflex FT4, CBC, CMP #### [facility] [address] [place], [place] [id number] Outside Records Officeon Outside Records Office [id number]# 1.00CD:127 Normal [facility] Referrals Officeon Referrals Office [id number]# 1.00CD:127 Normal [facility] Creatinineon 04-05-2017 Creatinine 1.27 mg/dL High 0.50-1.05 [facility] Comment on above: Performed By: #### 1 [id number] ####[facility] [address] [place] [address] eGFR (MDRD) 43 mL/min/{1.73_m2} Normal [facility] Comment on above: Result Comment: Inte rpretation for Chronic Kidney Disease:Stages 1&2 >60 Healthy or potential kidney damage.Mild decrease of GFR.Stage 3 30-59 Moderate decrease of GFR.Stage 4 15-29 Severe decrease of GFR.Stage 5 <15 Kidney failure or on dialysis. Performed By: #### 1 [id number] ####[facility] [id number] [place] [address] Electrolyte Panelon 04-05-19 18 Anion gap 11 mmol/L Normal 10-20 [facility] Comment on above: Performed By: #### 1 [id number] ####[facility] [address] [place] [address] Bicarbonate (HCO3) 30 mmol/L Normal 21-32 [facility]care Comment on above: Performed By: #### 1 [id number] ####[facility] [address] [place] [address] Chloride 101 mmol/L Normal 98-107 [facility] Comment on above: Performed By: #### 1 [id number] ####[facility] [address] [place] [address] Potassium molar conc 4.4 mmol/L Normal 3.5-5.1 [facility] Comment on above: Performed By: #### 1 [id number] ####[facility] [address] [place] [address] Sodium 138 mmol/L Normal 136-145 [facility] Comment on above: Performed By: #### 1 [id number] ####[facility] [address] [place] [address] Urea Nitrogenon 04-05-2017 Urea nitrogen 20 mg/dL Normal 6-23 [facility] Comment on above: Performed By: #### 1 [id number] ####[facility] [address] [place] [address] Vital Signs Date Time Vital Sign Value Performing Clinician Keshiai joel 08-29-2023 12:55-0400 Body height 167.6 cm Chely Jefferson MD Work Phone: [facility] 08-29-2023 12:55-040 Body mass index (BMI) [Ratio] 29.86 kg/m2 Chely Jefferson MD Work Phone: [facility] 08-29-2023 12:55-040 Body weight 83.92 kg Chely Jefferson MD Work Phone: [facility] 08-29-2023 12:55-0400 Diastolic blood pressure 68 mm[Hg] Chely Jefferson MD Work Phone: [facility] 08-29-2023 12:55-0400 Heart rate 56 /min Chely Jefferson MD Work Phone: [facility] 08-29-2023 12:55-0400 Systolic blood pressure 118 mm[Hg] Chely Jefferson MD Work Phone: [facility] 08-24-2022 08:39-0400 Diastolic blood pressure 80 mm[Hg] Gladis Lerma Quintero[place] Work Phone: [facility] 250 DO Work Phone: 08-24-2022 08:39-0400 Systolic blood pressure 136 mm[Hg] Gladis Florentin [place] Work Phone: [facility] 250 DO Work Phone: 08-24-2022 08:28-0400 Body height 167.64 cm Gladis Florentin [place] Work Phone: [facility] 250 DO Work Phone: 08-24-2022 08:28-0400 Body mass index (BMI) [Ratio] 30.34 kg/m2 Gladis D Quintero[place] Work Phone: [facility] 250 DO Work Phone: 08-24-2022 08:28-0400 Body surface area Derived from formula 1.95 m2 Gladis D Qu[place] Work Phone: [facility] [address] DO Work Phone: 08-24-2022 08:28-0400 Body weight 85.28 kg Gladis D Qu[place] Work Phone: [facility] 250 DO Work Phone: 08-24-2022 08:28-0400 Diastolic blood pressure 78 mm[Hg] Gladis D Qu[place] Work Phone: [facility] [address] DO Work Phone: 08-24-2022 08:28-0400 Heart rate 60 /min Gladis D [place] Work Phone: [facility] 250 DO Work Phone: 08-24-2022 08:28-0400 Systolic blood pressure 146 mm[Hg] Gladis D [place] Work Phone: [facility] 250 DO Work Phone: 04-26-2021 14:04-0500 Body height 167.64 cm Gladis D [place] Work Phone: [facility] 250 DO Work Phone: 04-26-2021 14:04-0500 Body mass index (BMI) [Ratio] 28.65 kg/m2 Gladis D [place] Work Phone: [facility] 250 DO Work Phone: 04-26-2021 14:04-0500 Body surface area Derived from formula 1.9 m2 Gladis D [place] Work Phone: [facility] 250 DO Work Phone: 04-26-2021 14:04-0500 Body weight 80.51 kg Gladis D [place] Work Phone: [facility] 250 DO Work Phone: 04-26-2021 14:04-0500 Diastolic blood pressure 63 mm[Hg] Gladis D [place] Work Phone: [facility] 250 DO Work Phone: 04-26-2021 14:04-0500 Heart rate 66 /min Gladis Lerma [place] Work Phone: [facility] [address] DO Work Phone: 04-26-2021 14:04-0500 Systolic blood pressure 117 mm[Hg] Gladis Lerma [place] Work Phone: [facility] [address] DO Work Phone: Encounters Encounter Date Encounter Type Care Provider Facility Start: 12-11-2023 End: 12-11-2023 ambulatory Megan Pappas MD Facility: [facility] Start: 11-20-2023 End: 11-20-2023 ambulatory Megan Pappas MD Facility: [facility] Start: 11-07-2023 End: 11-07-2023 ambulatory GLADIS D QUINTERO-EMERY Not Available Start: 08-29-2023 End: 08-29-2023 Office outpatient visit 25 minutes Chely Jefferson MD Work Phone: [facility] Comment on above: Essential hypertensi on, benign; Stage 3 chronic kidney disease, unspecified whether stage 3a or 3b CKD (Multi); Chronic obstructive pulmonary disease, unspecified COPD type (Multi); BMI 29.0-29.9,adult; Former smoker Start: 08-29-2023 End: 08-29-2023 ambulatory CHELY Carcamo [facility] Start: 06-07-2023 End: 06-07-2023 ambulatory Gladis Quintero[place] Facility:[facility] Start: 06-07-2023 End: 06-07-2023 ambulatory DO Gladis Quintero[place] Work Phone: [facility] Work Phone: Start: 06-07-2023 End: 06-07-2023 Patient encounter procedure DO Gladis Quintero[place] Work Phone: [facility] Work Phone: Start: 05-09-2023 End: 05-09-2023 ambulatory GLADIS D QUINTERO-EMERY Not Available Start: 12-19-2022 End: 12-20-2022 ambulatory Gladis Quintero[place] Facility:[facility] Start: 08-24-2022 Office outpatient vi sit 25 minutes Gladis D Qu[place] Work Phone: [facility] [address] DO Work Phone: Start: 08-24-2022 ambulatory Chely Jefferson Facility : Start: 07-14-2022 Rx Renewal Gladis D Weave r[place] Work Phone: [facility] 600 DO Work Phone: Start: 05-23-2022 End: 05-23-2022 ambulatory DO Gladis Quintero[place] Work Phone: [facility] Work Phone: Start: 05-23-2022 End: 05-23-2022 Patient encounter procedure DO Gladis Quintero[place] Work Phone: [facility] Work Phone: Start: 04-14-2022 Rx Renewal Gladis D Weave [place] Work Phone: [facility] 250 DO Work Phone: Start: 12-22-2021 End: 12-22-2021 ambulatory DO Gladis Quintero[place] Work Phone: [facility] Work Phone: Start: 12-22-2021 End: 12-22-2021 Patient encounter procedure DO Gladis Quintero[place] Work Phone: [facility] Start: 07-21-2021 Encounter for genera l adult medical examination without abnormal findings DR CHELY JEFFERSON [facility] Start: 07-16-2021 End: 07-17-[address] CHELY JEFFEROSN Facility:[facility] Start: 07-16-2021 End: 07-17-2021 Encounter for general adult medical examination without abnormal findings DR CHELY JEFFERSON Facility:[facility] Start: 04-26-2021 Office outpatient vi sit 25 minutes Gladis Lerma [place] Work Phone: [facility] 250 DO Work Phone: Start: 03-01-2021 Rx Renewal Chely Jefferson MD Work Phone: [facility] 250 DO Work Phone: Start: 04-05-2017 Ambulatory CHELY JEFFERSON Facility :[id number] Procedures Date Procedure Procedure Detail Performing Clinician Start: 06-07-2023 End: 06-07-2023 Screening mammography of bilateral breasts DO Gladis Qu[place] Work Phone: Start: 05-23-2022 Screening mammograph y of bilateral breasts DO Gladis [place] Work Phone: Start: 12-22-2021 Radionuclide three-p hase bone study DO Gladis [place] Work Phone: Cataract surgery Gladis D [facility] Work Phone: section Gladis D [facility] Work Phone: Ligation of fallopian tube S kylie D [place] Work Phone: Procedure on back Gladis D [facility] Work Phone: Tooth extraction Gladis D [facility] Work Phone: Total colonoscopy Gladis D [facility] [place] Work Phone: Plan of Treatment Date Care Activity Detail Author Start: 08-27-2024 End: 08-27-2024 Patient encounter procedure 08/27/2024 10:00 AM EDT Office Visit [facility] [address] [place] [address] Chely Jefferson MD [address] [facility] [place] [address] [facility] Start: 06-06-2024 Screening for malignant neoplasm of breast Mammogram [facility] Start: 11-26-2023 Influenza vaccination Influenza Vaccine (Season Ended) [facility] Start: 08-29-2023 FUV, Provider: Chely Jefferson, Status: Pen, Time: 8:30 AM FUV, Provider: Chely Jefferson, Status: Pen, Time: 8:30 AM [facility] 250 DO Work Phone: Start: 12-01-2022 DTaP/Tdap/Td Vaccines (1 - Tdap) DTaP/Tdap/Td Vaccines (1 - Tdap) [facility] Start: 11-25-2022 COVID-19 Vaccine ( season) COVID-19 Vaccine ( season) [facility] Start: 08-24-2022 FUV, Provider: Chely Jefferson, Status: Pen, Time: 8:30 AM FUV, Provider: Chely Jefferson, Status: Pen, Time: 8:30 AM [facility] 600 DO Work Phone: Start: 04-27-2022 FUV, Provider: Chely Jefferson, Status: Pen, Time: 8:30 AM FUV, Provider: Chely Jefferson, Status: Pen, Time: 8:30 AM [facility] 250 DO Work Phone: Start: 03-31-2021 FUV, Provider: Chely Jefferson, Status: Pen, Time: 8:30 AM FUV, Provider: Chely Jefferson, Status: Pen, Time: 8:30 AM [facility] 250 DO Work Phone: Start: 2015 RSV patients and/or patients aged 60+ years (1 - 1-dose 60+ series) RSV patients and/or patients aged 60+ years (1 - 1-dose 60+ series) [facility] Start: 09-02-2005 Zoster Vaccines (1 of 2) Zoster Vaccines (1 of 2) [facility] Start: 09-02-1973 Diabetes mellitus screening Diabetes Screening [facility] Start: 09-02-1973 Hepatitis C screening Hepatitis C Screening [facility] Start: 09-02-1961 Pneumococcal Vaccine: 65+ Years (1 of 2 - PCV) Pneumococcal Vaccine: 65+ Years (1 of 2 - PCV) [facility] Start: 1955 Lipid panel Lipid Panel [facility] Start: 1955 Screening for malignant neoplasm of colon [facility] Start: 1955 Screening for osteoporosis Bone Density Scan [facility] Start: 1955 Yearly Adult Physical Yearly Adult Physical [facility] Payers Date Payer Category Payer Unknown 2023 Unknown [id number] 2023 Medicare [id number] 2023 Medicare [id number] 2022 Self-pay [id number] 2021 Unknown [id number] 1959 Unknown [id number] 1955 Unknown [id number] 1955 Unknown [id number] 1955 Unknown [id number] 1955 Unknown [id number] 1955 Unknown [id number] 1955 Unknown [id number] 1955 Unknown [id number] Private Health Insurance [facility] [id number] Unknown [id number] Unknown [id number] Unknown [id number] Social History Date Type Detail Facility Start: 08-29-2023 Alcohol use Alcohol use [facility] 250 DO Work Phone: Comment on above: 4 cups of coffee bianca ly.; quit 2005; Start: 1955 Sex Assigned At Female F [facility] Start: 12-19-2022 End: 05-16-2023 Tobacco smoking status DEIS Ex-smoker (finding) [facility] History of tobacco use Current smoker [facility] Work Phone: History of tobacco use Cigarette Smoker [facility] Work Phone: Start: 08-29-2023 Alcoholic beverage intake Current drinker of alcohol (finding) [facility] Work Phone: Start: 08-29-2023 Tobacco use panel [facility] Work Phone: Start: 08-29-2023 Alcohol Comment rarely [facility] Work Phone: Start: 1955 Sex assigned at Not on file [facility] Work Phone: Start: 08-19-2023 End: 08-29-2023 Exposure to SARS-CoV-2 (event) Not sure [facility] History of Present illness Narrative 08-29-2023 [...] office on annual basis. Chely Jefferson MD, FACC Review of Systems Cardiovascular: Positive for palpitations. [...] syrup, Take by mouth., Disp: , Rfl: mvxgdvlywen-xlnmwrnja-brnwymms (TRELEGY-ELLIPTA) 100-62.5-25 mcg blister with device, Inhale [...] Attestation By signing my name below, I, Lola Reynoso LPN Scribe attest that this documentation has been prepared [...] plan. documented in this encounter [facility] Work Phone: Instructions 08-29-2023 Patient InstructionsAttachments [...] cannot be sent through Care Everywhere.Mediterranean Diet (Mongolian)documented in this encounter [facility] Work Phone: Evaluation note 08-29-2023 Note Date & Type Note Facility 08-29-2023 Evaluation note Diagnosis Essential hypertension, benign Stage 3 chronic kidney disease, unspecified whether stage 3a or 3b CKD (Multi) Chronic obstructive pulmonary disease, unspecified COPD type (Multi) BMI 29.0-29.9,adult Former smoker Personal history of tobacco use, presenting hazards to health documented in this encounter [facility] Work Phone: Evaluation note Note Date & Type Note Facility Evaluation note No assessment information availa [facility] Work Phone: Reason for referral (narrative) Consultation (Routine) - Authorized Note Date & Type Note Facility Reason for referral (narrati ve) Specialty Diagnoses / Procedures Referred By Contac t Referred To Contact Cardiology Diagnoses Essential hypertension, benign Procedures Follow Up In Cardiology Chely Jefferson MD [address] [facility] [address] [place] [address] Chely Jefferson MD [address] [facility] [place] [address] Referral ID Status Reason Start Date Expiration Date V isits Requested Visits Authorized [id number] Authorized 08/29/2023 08/28/2024 1 1 [facility] Work Phone: Summary Purpose Family History [...] section and content) DATE CREATED AUTHOR 09/19/2017 [facility] DATE CREATED AUTHOR AUTHOR'S ORGANIZ ATION 06/22/2020 [facility] DATE CREATED AUTHOR AUTHOR'S ORGANIZ ATION 04/07/2021 [facility] dical Specialist DATE CREATED AUTHOR AUTHOR'S ORGANIZ ATION 07/24/2021 [facility] DATE CREATED AUTHOR AUTHOR'S ORGANIZ ATION 09/06/2022 [facility] DATE CREATED AUTHOR AUTHOR'S ORGANIZ ATION 09/06/2022 [facility] DATE CREATED AUTHOR AUTHOR'S ORGANIZ ATION 06/10/2023 [facility] DATE CREATED AUTHOR AUTHOR'S ORGANIZ ATION 08/30/2023 [facility] DATE CREATED AUTHOR AUTHOR'S ORGANIZ ATION 11/08/2023 [facility] dical Specialists EPIC DATE CREATED AUTHOR AUTHOR'S ORGANISADORA ATION 12/22/2023 [facility] Care Teams (unrecognized sec tion and content) Team Status: Inactive Member Role Status Dates Gladis Solorzano , DO Primary Care Provider Active Esvin Powers DPM Attending Provider Active Team Status: Active Member Role Status Dates Gladis Solorzano , DO Primary Care Provider Active Team Status: Inactive Member Role Status Dates Gladis Solorzano , DO Primary Care Provider, Attend ing Provider Active Team Status: Inactive Member Role Status Dates Gladis Solorzano , DO Primary Care Pr ovider, Attending Provider Active Start: June 07, 2023 End: June 07, 2023 [employer] T[employer] Relationship Specialty Start Date End Date Gladis Solorzano RemaDO [address] [place] [address] PCP - General 03/27/99 Goals (unrecognized section [...] BE BASED ON THE PRIMARY CLINICAL RECORDS. [facility]. provides no warranty or guarantee of the accuracy or completeness of information in this document.
--- NOTE | 2023-12-25 12:12 | P.CN_ITS ---
Consult Note: HPI Data of Consult Patient: known to practice within the last 3 years Consult date: 12/25/23 Requesting Physician: Megan Pappas MD Primary Care Provider: HELEN JEFFERY Consult Narrative Reason for consult: bilateral knee pain Narrative: 68yof who presents for in office injection. continues to have bilateral knee pain. cc:: CC: Megan Pappas MD Review of Systems ROS Status of ROS 10 or more systems reviewed and unremark able except as noted in history and below PFSH PFSH Medical History Carpal tunnel syndrome ?G56.00 - Carpal tunnel syndrome, unspecified upper limb (ICD-10) COPD (chronic obstructive pulmonary disease) ?J44.9 - Chronic obstructive pulmonary disease, unspecified (ICD-10) HTN (hypertension) ?I10 - Essential (primary) hypertension (ICD-10) Surgical History History of cataract extraction ?Z98.49 - Cataract extraction status, unspecified eye (ICD-10) Hx laparoscopic cholecystectomy ?Z90.49 - Acquired absence of other specified parts of digestive tract (ICD- 10) History of carpal tunnel release ?Z98.890 - Other specified postprocedural states (ICD-10) History of back surgery ?Z98.890 - Other specified postprocedural states (ICD-10) History of tubal ligation ?Z98.51 - Tubal ligation status (ICD-10) H/O section ?Z98.891 - History of uterine scar from previous surgery (ICD-10) Meds Home Medications and Allergies Home Medications ?Medication ?Instructions ?Recorded ?Confirmed ?Type albuterol sulfate 90 mcg/actuation 2 inh inhalation Q4H PRN shortness 11/20/23 12/11/23 History aerosol inhaler of breath or wheezing atenolol 50 mg tablet 50 mg PO DAILY 11/20/23 12/11/23 History calcium 500 mg tablet 500 mg 11/20/23 History citalopram 20 mg tablet 20 mg PO DAILY 11/20/23 12/11/23 History fluticasone fur. 100 mcg-umeclid 1 inh inhalation DAILY 11/20/23 12/11/23 History 62.5 mcg-vilant 25 mcg inhalat.powder (Trelegy Ellipta) lisinopril 10 1 tab PO DAILY 11/20/23 12/11/23 History mg-hydrochlorothiazide 12.5 mg tablet magnesium 250 mg tablet 250 mg PO DAILY 11/20/23 12/11/23 History omega 5-ism-ffd-fish oil 1,000 mg 1 cap PO BID 11/20/23 12/11/23 History (120 mg-180 mg) capsule (Fish Oil) vitamin B complex (B-Complex 1 tab PO DAILY 11/20/23 12/11/23 History tablet) Allergies Allergy/AdvReac Type Severity Reaction Status Date / Time adhesive tape Allergy Rash Verified 12/11/23 09:56 Exam Narrative Exam Narrative: Psych-alert and oriented x 3.? Attentive and appropriate, constitutionally normal, displays normal mood and affect per situation.? There are no obvious deficits in memory, reasoning, or intellect. Extremities-lower extremities are warm with minimal edema and palpable pulses. Knee-examination of the bilateral knee reveals tenderness to palpation over the superior, inferior, lateral, and medial aspect of the knee.? Some swelling is noted without erythema. Pain is elicited with flexion and extension of the knee both actively and passively.? Some grinding is noted with these motions.? There is no notable ligamental laxity or instability.? Coordination remains intact.? Gait remains antalgic. Assessment and Plan Assessment and Plan (1) Bilateral knee pain: Qualifiers: Chronicity: chronic Qualified Code(s): M25.561 - Pain in right knee; M25.562 - Pain in left knee; G89.29 - Other chronic pain (2) Bilateral primary osteoarthritis of knee: Plan 68yof who presents for in office injection. continues to have bilateral knee pain. has had significant relief of >50% for >3 months with previous injections. would like to repeat today. i am in agreement. Procedure: Bilateral knee injections Medications: Bupivacaine 0.25% 4cc, kenalog 40mg x2 I explained the details of the procedure to the patient including the risks, benefits and alternatives. We had an informed discussion and the patient verbalized understanding and signed the consent form. All questions were answered appropriately.? A time out was performed.? After obtaining a comfortable seated position, the right knee was prepped with alcohol x3. A syringe containing the above medication was attached to a 25 gauge, 1.5 inch needle under strict aseptic technique. The lateral tibial plateau was palpated.? The needle was then advanced through the subcutaneous tissue in a medial and superior direction towards the joint space.? The contents of the syringe were gently injected without any resistance. The needle was removed and pressure was applied to the injection site to decrease the incidence of ecchymosis and hematoma formation.? A sterile bandage was applied. The same procedure was then completed on the opposite side.
== END 2023-12-25 11:23 | disposition home or self-care (01) ==
LOC: PM 11:22
PROVIDERS: PCP Internal Medicine; Visit Provider Anesthesiology
DX: M25.561 Pain in right knee (principal); M25.562 Pain in left knee; G89.29 Other chronic pain
CPT/HCPCS: 20610; J0665; J3301